=== PATIENT | male | born 1945 | race Two or more races ===

== ENCOUNTER → 2024-06-08 | Outpatient (CLI) | payer MEDICARE, BC, SELFPAY ==
[2024-06-08 08:35] LABS: Glucose Estimated Average 100 mg/dL (80-131); Hemoglobin A1C 5.1 % Hgb (4.8-6.0); PSA Medicare Annual Scrn 0.81 ng/mL (0-4.00)
[2024-06-08 08:37] LABS: Alanine Aminotransferase 59 U/L (10-49); Albumin, Serum 3.8 gm/dL (3.4-4.8); Albumin/Globulin Ratio 1.5 (1.2-2.2); Alkaline Phosphatase 111 U/L (46-116); Anion Gap 6 (7-16); Aspartate Amino Transferase 69 U/L (0-34); BUN/Creatinine Ratio 17 Ratio (12-20); Blood Urea Nitrogen 15 mg/dL (9-23); Calcium 9.2 mg/dL (8.3-10.6); Calcium (Corrected) 9.4 mg/dL (8.5-10.1); Carbon Dioxide 25.5 mMol/L (20.0-31.0); Cardiac Risk Estimate 3.5 RATIO (4.0-6.7); Chloride 107 mMol/L (98-107); Cholesterol 138 mg/dL (132-200); Creatinine (Component) 0.9 mg/dL (0.6-1.3); Globulin 2.5 gm/dL (2.3-3.5); Glucose 110 mg/dL (74-106); HDL Cholesterol 40 mg/dL (40-60); LDL Cholesterol,Calculated 78 mg/dL (0-130); Osmolality,Calculated 277 (275-295); Potassium 3.9 mMol/L (3.4-5.1); Sodium 138 mMol/L (136-145); Total Protein 6.3 gm/dL (5.7-8.2); Triglycerides 99 mg/dL (30-150); eGFR > 60 See Note
[2024-06-08 08:39] LABS: Basophils % (Auto) 0 % (0-2.5); Eosinophils # (Auto) 0.3 Thou/mm3 (0.0-0.5); Eosinophils % (Auto) 5 % (0-10); Hematocrit 29.2 % (41.0-53.0); Hemoglobin 10.2 g/dL (13.5-16.0); Immature Granulocytes % (Auto) 0 % (0-0); Immature Granulocytes Auto 0.01 Thou/mm3 (0.00-0.00); Lymphocytes # (Auto) 1.3 Thou/mm3 (1.0-4.8); Lymphocytes % (Auto) 27 % (10-50); Mean Corpuscular HGB Conc 34.9 g/dl (31.0-37.0); Mean Corpuscular Hemoglobin 35.3 pg (25.0-35.0); Mean Corpuscular Volume 101 fL (80-100); Monocytes # (Auto) 0.4 Thou/mm3 (0.0-0.8); Monocytes % (Auto) 8 % (0-12); Neutrophils # (Auto) 2.8 Thou/mm3 (1.8-7.7); Neutrophils % (Auto) 59 % (37-80); Nucleated Red Blood Cell % 0 /100 WBC (0); Platelet Count 100 Thou/mm3 (140-440); RDW Standard Deviation 52.5 fL (35.1-43.9); Red Blood Count 2.89 Miln/mm3 (4.50-5.90); White Blood Count 4.8 Thou/mm3 (3.8-10.6)
== END | disposition home or self-care (01) ==
LOC: COPL 07:15
PROVIDERS: PCP Internal Medicine; Referring Provider Internal Medicine; Visit Provider Internal Medicine
DX: E78.2 Mixed hyperlipidemia (principal); I10 Essential (primary) hypertension; Z12.5 Encounter for screening for malignant neoplasm of prostate
CPT/HCPCS: 36415; 80053; 80061; 83036; 84153; 85025; G0103

== ENCOUNTER → 2024-06-09 | Outpatient (CLI) | payer MEDICARE, BC, SELFPAY ==
[2024-06-09 12:13] LABS: OBS Card Lot # 23001; OBS Performed By LAB; OBS QC OK? Yes
[2024-06-09 14:30] LABS: OBS Developer Lot # 23003; Occult Blood, Stool Negative (Negative); Occult Blood, Stool #2 Negative (Negative); Occult Blood, Stool #3 Negative (Negative)
== END | disposition home or self-care (01) ==
LOC: SLDO 11:56
PROVIDERS: Referring Provider Internal Medicine; Visit Provider Internal Medicine
DX: E78.2 Mixed hyperlipidemia (principal); I10 Essential (primary) hypertension
CPT/HCPCS: 82270

== ENCOUNTER → 2024-06-21 | Outpatient (CLI) | payer MEDICARE, BC, SELFPAY ==
[2024-06-21 11:38] LABS: Basophils % (Auto) 0 % (0-2.5); Eosinophils # (Auto) 0.1 Thou/mm3 (0.0-0.5); Eosinophils % (Auto) 3 % (0-10); Hematocrit 35.1 % (41.0-53.0); Hemoglobin 11.6 g/dL (13.5-16.0); Immature Granulocytes % (Auto) 1 % (0-0); Immature Granulocytes Auto 0.03 Thou/mm3 (0.00-0.00); Lymphocytes # (Auto) 1.1 Thou/mm3 (1.0-4.8); Lymphocytes % (Auto) 24 % (10-50); Mean Corpuscular Hemoglobin 32.9 pg (25.0-35.0); Mean Corpuscular Volume 99 fL (80-100); Monocytes # (Auto) 0.3 Thou/mm3 (0.0-0.8); Monocytes % (Auto) 7 % (0-12); Neutrophils # (Auto) 2.9 Thou/mm3 (1.8-7.7); Neutrophils % (Auto) 65 % (37-80); Nucleated Red Blood Cell % 0 /100 WBC (0); Platelet Count 125 Thou/mm3 (140-440); RDW Standard Deviation 52.6 fL (35.1-43.9); Red Blood Count 3.53 Miln/mm3 (4.50-5.90); White Blood Count 4.5 Thou/mm3 (3.8-10.6)
[2024-06-21 11:45] LABS: Iron 69 mcg/dL (65-175)
[2024-06-21 11:54] LABS: Vitamin B12 805 pg/mL (211-911)
[2024-06-21 12:44] LABS: Path Review Blood Smear Sent to Pathologist
[2024-06-28 03:04] LABS: Albumin 3.7 g/dL (3.8-4.8); Alpha-1-Globulin 0.3 g/dL (0.2-0.3); Alpha-2-Globulin 0.7 g/dL (0.5-0.9); Beta-1-Globulin 0.5 g/dL (0.4-0.6); Beta-2-globulin 0.3 g/dL (0.2-0.5); Gamma Globulin 1.5 g/dL (0.8-1.7)
[2024-06-28 06:29] LABS: Protein, total, serum 6.9 g/dL (6.1-8.1)
== END | disposition home or self-care (01) ==
LOC: COPL 10:27
PROVIDERS: PCP Internal Medicine; Referring Provider Internal Medicine; Visit Provider Internal Medicine
DX: D50.0 Iron deficiency anemia secondary to blood loss (chronic) (principal)
CPT/HCPCS: 36415; 82607; 83540; 84155; 84165; 85025; 86334

== ENCOUNTER 2024-07-04 19:47 | Inpatient (IN) | payer MEDICARE, BC, SELFPAY ==
[2024-07-04] VITALS (8 sets, daily range): BP systolic 97–143; BP diastolic 34–88; PULSE 91–98; RESP 16–22; TEMP 36.5–37.3; O2SAT 96–100; BMI 30.4
--- NOTE | 2024-07-04 19:52 | EKG_ITS ---
[facility] Test Date: 2024-07-04 Pat Name: DAGMAR SHARPE Department: Room: - Gender: Male [employer]: : 1945 Requested By: Avery Candelario Order Number: [id number] Reading MD: Avery Candelario Measurements Intervals [place] Rate: 96 P: CT: QRS: 17 QRSD: 93 T: 60 QT: 350 QTc: 443 Interpretive Statements ATRIAL FIBRILLATION NONSPECIFIC ST & T-WAVE ABNORMALITY ABNORMAL RHYTHM ECG No previous ECG available for comparison /store/S0/[id number]/[id number].pdf
--- NOTE | 2024-07-04 20:18 | XR_ITS ---
Examination: AP chest single view Technique one AP portable upright chest single view Exam date and time: July 04, 20242035 hrs. Indications: Coughing up blood today with vomiting Findings: Normal heart size No aspiration pneumonia. Moderate osteopenia Impression: Negative for aspiration pneumonia
--- NOTE | 2024-07-04 20:19 | PD.EDRME ---
Rapid Medical Screening Exam [facility] Arrival date/time: 07/04/24 19:47 78M with history of HTN and previous alcohol use/abuse presents to ED with 1 day of dizziness/weakness, gen ab pain, coughing/spitting/throwing up up blood, as well as possibly black stools. Patient states he had a negative Guaiac test at PCP. Patient states he caught himself before he fell, but apparently neighbor states he fell and hit his head. Chief Complaint: Nausea/Vomiting/Diarrhea Time Seen by Provider: 07/04/24 21:38 Vital signs: Vital Signs Temperature 97.7 F 07/04/24 20:06 Pulse Rate 91 07/04/24 20:06 Respiratory Rate 20 07/04/24 20:06 Blood Pressure 97/68 07/04/24 20:06 Pulse Oximetry (%) 98 07/04/24 20:06 Oxygen Delivery Method Room Air 07/04/24 20:06
--- NOTE | 2024-07-04 20:24 | XR_ITS ---
Examination: CT brain head without contrast. 2-D sagittal coronal reconstructions Date and time of exam:July 04, 2024 2050 hrs. Comparison 04/21/2012 Indications: Patient fell 2 hours ago with injury to the head, head pain and dizziness CTDI: vol (mGy):50.20 DLP: (mGycm):1025 Technique: Multiple CT axial sections of the brain have been obtained, 5 mm slice thickness. Contrast has not been administered. 2-D sagittal, coronal reconstructions have been obtained Low dose protocols were performed. One or more of the following dose reduction techniques were used; automated exposure control, adjustment of the mA and/or KV according to patient size, use of iterative reconstruction technique. Findings: No significant ventricular enlargement. Intra-axial or extra-axial hemorrhage density is not seen. No mass effect or midline shift Basal cisterns are not remarkable. Fourth ventricle is midline. Cranial vault intact. Right maxillary sinusitis Impression: Negative for acute hemorrhage, mass effect or midline shift
--- NOTE | 2024-07-04 20:24 | XR_ITS ---
Examination: CT cervical spine without contrast 2-D sagittal reconstructions 2-D coronal reconstructions 3-D reconstructions. Exam date and time:July 04, 20242 hrs. Indications: Patient fell 2 hours ago with injury to the neck, neck pain CTDI:vol (mGy) 16.46 DLP: (mGycm) 457 Technique: Multiple 2 mm axial sections of the cervical spine have been obtained. The coronal and sagittal reconstructions have been obtained. 3-D reconstructions have been obtained. Low dose protocols were performed. One or more of the following dose reduction techniques were used; automated exposure control, adjustment of the mA and/or KV according to patient size, use of iterative reconstruction technique. Findings: Axial sections demonstrate intact base of the skull. C1 exhibit satisfactory relationship to the odontoid. No acute cervical vertebral body fracture seen. Alignment posterior spinous processes satisfactory. Impression: No acute cervical fracture.
--- NOTE | 2024-07-04 20:30 | PC.NURSE ---
PT CAME TO ER FROM HOME FOR C/O DIZZINESS AND WEAKNESS, PT WAS AT ER LOBBY , PUT TO ROOM 2 BECAUSE PT SAID HE VOMITED BLOOD, PALE LOOKING. PT ALSO SAID HE DID NOT FALL. HE ALSO SAID HE HAS BLACK STOOL.
[2024-07-04] MEDS: ONDANSETRON INJ 2 MG/ML INJ 2 ML 4 MG IV (20:35)
[2024-07-04] MEDS: PANTOPRAZOLE INJ 40 MG VIAL 80 MG IV (20:38)
[2024-07-04 20:58] LABS: Basophils % (Auto) 0 % (0-2.5); Eosinophils % (Auto) 0 % (0-10); Immature Granulocytes % (Auto) 1 % (0-0); Lymphocytes # (Auto) 2.4 Thou/mm3 (1.0-4.8); Lymphocytes % (Auto) 18 % (10-50); Mean Corpuscular Hemoglobin 32.5 pg (25.0-35.0); Mean Corpuscular Volume 102 fL (80-100); Monocytes # (Auto) 0.9 Thou/mm3 (0.0-0.8); Monocytes % (Auto) 6 % (0-12); Neutrophils # (Auto) 10.1 Thou/mm3 (1.8-7.7); Neutrophils % (Auto) 75 % (37-80); Nucleated Red Blood Cell % 0 /100 WBC (0); Platelet Count 176 Thou/mm3 (140-440); White Blood Count 13.5 Thou/mm3 (3.8-10.6)
[2024-07-04 21:15] LABS: Red Blood Count 1.94 Miln/mm3 (4.50-5.90)
[2024-07-04 21:16] LABS: Hematocrit 19.7 % (41.0-53.0); Hemoglobin 6.3 g/dL (13.5-16.0)
[2024-07-04 21:18] LABS: Alanine Aminotransferase 22 U/L (10-49); Albumin, Serum 3.1 gm/dL (3.4-4.8); Albumin/Globulin Ratio 1.3 (1.2-2.2); Alkaline Phosphatase 84 U/L (46-116); Anion Gap 13 (7-16); Aspartate Amino Transferase 33 U/L (0-34); B-Type Natriuretic Peptide 39 pg/mL (0-100); BUN/Creatinine Ratio 30 Ratio (12-20); Bilirubin,Total 0.4 mg/dL (0.3-1.2); Blood Urea Nitrogen 39 mg/dL (9-23); Calcium (Corrected) 9.7 mg/dL (8.5-10.1); Chloride 110 mMol/L (98-107); Creatinine (Component) 1.3 mg/dL (0.6-1.3); Globulin 2.4 gm/dL (2.3-3.5); Glucose 205 mg/dL (74-106); INR 1.3 (0.9-1.3); Lipase 37 U/L (12-53); Osmolality,Calculated 296 (275-295); Partial Thromboplastin Time 23.6 Seconds (22.0-36.0); Potassium 4.1 mMol/L (3.4-5.1); Prothrombin Time 14.2 Seconds (9.0-12.2); Sodium 141 mMol/L (136-145); Total Protein 5.5 gm/dL (5.7-8.2); Troponin I < 0.020 ng/mL (0.0-0.045); eGFR 57 See Note
--- NOTE | 2024-07-04 21:38 | EDNOTE_ITS ---
Nausea/Vomit./Diarrhea-RME/HPI General Chief complaint: Nausea/Vomiting/Diarrhea Stated complaint: VOMITING,Weakness, Dizzy,fall today Time Seen by Provider: 07/04/24 21:38 Arrival date/time: 07/04/24 19:47 Limitations: no limitations RME / HPI RME / HPI Narrative: 07/04/24 19:47 78M with history of HTN and previous alcohol use/abuse presents to ED with 1 day of dizziness/weakness, gen ab pain, coughing/spitting/throwing up up blood, as well as possibly black stools. Patient states he had a negative Guaiac test at PCP. Patient states he caught himself before he fell, but apparently neighbor states he fell and hit his head. DIZZY X 1 WEEK, NO CHANGE IN THE LAST FEW DAY. The patient states that the dizziness increased since yesterday. ---- Dr. Eubanks's Main ED Evaluation: 78yo male with a history of HTN, alcohol abuse (quit 2 years ago) presents to the ED for a chief complaint of dizziness x 1 week. Patient reports 2 emetic episodes today, reporting one had bright red bl ood. Patient notes he had one episode of coughing up blood just prior to throwing up blood. He denies any bloody or black stools, weight loss or any other associated symptoms. No known allergies. Patient denies being on blood thinners. Patient reports he is not a heavy drinker. MD complaint: nausea, vomiting and other (dizzy) Description of Vomiting: food contents and coffee grounds Associated Abdominal Pain: No Related Data Home Medications ?Medication ?Instructions ?Recorded ?Confirmed amlodipine 10 mg tablet 10 mg PO DAILY 09/28/23 09/29/23 diclofenac 75 mg-misoprostol 200 1 tab PO BID PRN Pain 09/28/23 09/29/23 mcg tablet,immediate,delayed release finasteride 5 mg tablet 5 mg PO DAILY 09/28/23 09/29/23 Allergies Allergy/AdvReac Type Severity Reaction Status Date / Time No Known Allergies Allergy Verified 09/29/23 10:25 Review of Systems Review of Systems Systems Reviewed: All systems reviewed, normal except as documented Past Medical History Past Medical History NEUROLOGIC: Negative Neurological Disorders or Seizures CARDIAC: Positive Cardiac Disorders and Hypertension; Negative Hypercholesterolemia or Congestive Heart Failure RESPIRATORY: Negative Chronic Obstructive Pulmonary Disease (COPD) or Asthma GASTROINTESTINAL: Negative Gastrointestinal Disorders GENITOURINARY: Positive Genitourinary Disorders and Benign Prostatic Hyperplasia; Negative Renal Disease MUSCULOSKELETAL: Positive Musculoskeletal Disorders and Arthritis ENT: Positive Cataracts ENDOCRINE: Negative Endocrine Disorders, Diabetes Mellitus Type 1 or Diabetes Mellitus Type 2 HEMATOLOGIC: Negative Sickle Cell Disease OTHER HISTORY: Negative Blood Transfusions, Anesthesia Reactions or Cancer Social History SMOKING STATUS: Never smoker ED Exam General Limitations: Present no limitations General appearance: Present alert, in no apparent distress and other (laying in the bed, appears pale; has bright red blood on his right chest wall; no facial or muscle wasting) Head Head exam: Present atraumatic Eye Eye exam: Present normal appearance, PERRL and EOMI ENT ENT exam: Present normal exam, normal oropharynx and mucous membranes moist Neck Neck exam: Present normal inspection, full ROM and trachea midline Chest Chest inspection: Present normal inspection and symmetric chest wall rise Respiratory Respiratory exam: Present normal lung sounds bilaterally Cardiovascular Cardiovascular exam: Present regular rate, normal rhythm and normal heart sounds Abdominal Exam Abdominal exam: Present soft, normal bowel sounds and other (large); Absent mass Extremities Exam Extremities exam: Present normal inspection, full ROM and normal capillary refill Back Exam Back exam: Present normal inspection and full ROM Neurological Exam Neurological exam: Present alert, oriented X3 and CN II-XII intact Psychiatric Psychiatric exam: Present normal affect and normal mood Skin Skin exam: Present warm, dry, intact and normal color Course Quality Measures none Orders Category Date Time Status Admit to Inpatient Status Routine Admission 07/05/24 01:37 Active Patient Condition Routine Admission 07/05/24 01:36 Ordered Blood glucose [Bedside Blood Glucose] NOW Care 07/04/24 19:52 Active COVID-19 Screening Questionnaire NOW Care 07/05/24 01:[address] Screening NOW Care 07/04/24 22:04 Active Decision to Admit X1 Care 07/05/24 01:03 Completed EKG (ED ONLY) *Do not use* NOW Care 07/04/24 19:52 Completed Insert IV NOW Care 07/04/24 20:25 Active NPO NOW Care 07/05/24 01:38 Active Notify provider NEEDED Care 07/05/24 01:36 Active Transfuse,blood/blood products ONCE Care 07/05/24 01:09 Active Consult to Gastroenterology Stat Cons 07/05/24 01:05 Ordered Diet NPO (NOW) Diet 07/05/24 01:[address] angio chest abdomen pelvis Stat Exams 07/04/24 22:[address] cervical spine wo con Stat Exams 07/04/24 20:[address] head/brain wo con Stat Exams 07/04/24 20:24 Completed EKG (ED Only) Stat Exams 07/04/24 19:52 Draft XR chest 1V portable Stat Exams 07/04/24 20:18 Completed B-Type Natriuretic Peptide Stat Lab 07/04/24 20:40 Completed CBC Stat Lab 07/04/24 20:40 Completed Comprehensive Metabolic Panel Stat Lab 07/04/24 20:40 Completed Drug Screen,Urine Stat Lab 07/04/24 23:35 Completed INR [Prothrombin Time with INR] Stat Lab 07/04/24 20:40 Completed Lipase Stat Lab 07/04/24 20:40 Completed PTT [Partial Thromboplastin Time] Stat Lab 07/04/24 20:40 Completed Path Review Blood Smear Stat Lab 07/04/24 20:40 Completed Troponin I Stat Lab 07/04/24 20:40 Completed Type and Screen Stat Lab 07/04/24 20:40 Results prbc [Red Blood Cells] Stat Lab 07/04/24 20:40 Results Ondansetron Inj [Zofran Inj] Med 07/04/24 20:25 Discontinued 4 mg IV X1 ONE Pantoprazole Inj [Protonix Inj] Med 07/04/24 20:25 Discontinued 80 mg IV X1 ONE Code Status Routine Oth 07/05/24 01:36 Ordered Oxygen Delivery PRN RT 07/05/24 01:38 Active Vital Signs Vital signs: Vital Signs Temperature 97.7 F 07/04/24 20:06 Pulse Rate 91 07/04/24 20:06 Respiratory Rate 20 07/04/24 20:06 Blood Pressure 97/68 07/04/24 20:06 Pulse Oximetry (%) 98 07/04/24 20:06 Oxygen Delivery Method Room Air 07/04/24 20:06 Pulse ox is 98% on room air, which is normal according to my interpretation. Nausea/Vomiting/Diarrhea MDM Narrative MDM Narrative:: Differential diagnosis includes GI bleed, upper versus lower, diverticulosis, cirrhosis, dehydration, acute renal failure, A-fib with RVR. Patient has a history of atrial fibrillation coming in with last drink greater than 50 years ago with GI bleed. Otherwise hemodynamically stable. Patient is treated with 2 units of packed red blood cells, and admitted for colonoscopy. Patient data External records reviewed:: [facility] [place] (Per chart review, patient has no relevant previous ED visits or admissions to this facility.) Clinical information provided by:: patient Social determinants that could affect healthcare access:: alcohol use (history of) Patient has the following chronic illnesses:: HTN, HLD How is presenting disease/condition affected by chronic disease/condition?: uneffected by Evaluation data The following diagnostics were reviewed and interpreted by me:: lab results, radiology exam(s) and EKG tracing(s) Lab and/or radiology exams considered but not ordered:: none Interpretation Summary: WBC count is elevated at 13.5, RBCs are low at 1.94, HnH is low at 6.3/19.7, Platelets are normal at 176, PT is elevated at 14.2, INR and PTT are normal, Glucose is elevated at 205, troponin is normal, according to my interpretation. EKG done at 2004, aFib, rate of 96, no ST elevations or depressions, QTc: 453, no previous EKG for comparison, according to my interpretation. --- I have personally reviewed the radiology data and agree with the radiologist's interpretation below: [facility] Report Signed Patient: DAGMAR SHARPE Record#: [id number] Birthdate: 1945 Age/Sex: 78 / M Location: [facility] Attending Dr: Ordering Physician: Avery Candelario PA-C Date of Service: 07/04/24 Procedure(s): XR chest 1V portable Accession Number(s): [id number] cc: Chandrakant Leon MD; Avery Candelario PA-C~ Examination: AP chest single view Technique one AP portable upright chest single view Exam date and time: July 04, 2024 203 hrs. Indications: Coughing up blood today with vomiting Findings: Normal heart size No aspiration pneumonia. Moderate osteopenia Impression: Negative for aspiration pneumonia Dictated By: Chandrakant Leon MD Signed By: <Electronically signed by Chandrakant Leon MD in OV> 07/04/243 [facility] Report Signed Patient: DAGMAR SHARPE [employer]. Record#: [id number] Birthdate: 1945 Age/Sex: 78 / M Location: [facility] Attending Dr: Ordering Physician: Avery Candelario PA-C Date of Service: 07/04/24 Procedure(s): CT cervical spine wo con Accession Number(s): [id number] cc: Chandrakant Leon MD; Avery Candelario PA-C~ Examination: CT cervical spine without contrast 2-D sagittal reconstructions 2-D coronal reconstructions 3-D reconstructions. Exam date and time:July 04, 20242 hrs. Indications: Patient fell 2 hours ago with injury to the neck, neck pain CTDI:vol (mGy) 16.46 DLP: (mGycm) 457 Technique: Multiple 2 mm axial sections of the cervical spine have been obtained. The coronal and sagittal reconstructions have been obtained. 3-D reconstructions have been obtained. Low dose protocols were performed. One or more of the following dose reduction techniques were used; automated exposure control, adjustment of the mA and/or KV according to patient size, use of iterative reconstruction technique. Findings: Axial sections demonstrate intact base of the skull. C1 exhibit satisfactory relationship to the odontoid. No acute cervical vertebral body fracture seen. Alignment posterior spinous processes satisfactory. Impression: No acute cervical fracture. Dictated By: Chandrkaant Leon MD Signed By: <Electronically signed by Chandrakant Leon MD in OV> 07/04/24 2154 [facility] Report Signed Patient: DAGMAR SHARPE [facility]. Record#: [id number] Birthdate: 1945 Age/Sex: 78 / M Location: [facility] Attending Dr: Ordering Physician: Avery Candelario PA-C Date of Service: 07/04/24 Procedure(s): CT head/brain wo con Accession Number(s): [id number] cc: Chandrakant Leon MD; Avery Candelario PA-C~ Examination: CT brain head without contrast. 2-D sagittal coronal reconstructions Date and time of exam:July 04, 20242049 hrs. Comparison 04/21/2012 Indications: Patient fell 2 hours ago with injury to the head, head pain and dizziness CTDI: vol (mGy):50.20 DLP: (mGycm):1025 Technique: Multiple CT axial sections of the brain have been obtained, 5 mm slice thickness. Contrast has not been administered. 2-D sagittal, coronal reconstructions have been obtained Low dose protocols were performed. One or more of the following dose reduction techniques were used; automated exposure control, adjustment of the mA and/or KV according to patient size, use of iterative reconstruction technique. Findings: No significant ventricular enlargement. Intra-axial or extra-axial hemorrhage density is not seen. No mass effect or midline shift Basal cisterns are not remarkable. Fourth ventricle is midline. Cranial vault intact. Right maxillary sinusitis Impression: Negative for acute hemorrhage, mass effect or midline shift Dictated By: Chandrakant Leon MD Signed By: <Electronically signed by Chandrakant Leon MD in OV> 07/04/24 2152 Medications / Prescriptions Medications / Prescriptions considered but not ordered:: none Medication administrations:: Medication Administration History Ondansetron HCl (Ondansetron Inj 2 Mg/Ml Inj 2 Ml) 4 mg IV Q6H PRN; Protocol PRN Reason: NAUSEA OR VOMITING Stop: 08/04/24 01:38 Pantoprazole Sodium (Pantoprazole Inj 40 Mg Vial) 40 mg IVP Q12HR NOA Stop: 08/04/24 08:59 Discontinued Medications Ondansetron HCl (Ondansetron Inj 2 Mg/Ml Inj 2 Ml) 4 mg IV X1 ONE; Protocol Stop: 07/04/24 20:26 Last Admin: 07/04/24 20:35 Dose: 4 mg Documented By: CVL Pantoprazole Sodium (Pantoprazole Inj 40 Mg Vial) 80 mg IV X1 ONE Stop: 07/04/24 20:26 Last Admin: 07/04/24 20:38 Dose: 80 mg Documented By: CVL see above Consultations Consultation(s) initiated? (list below): Yes Consultation #1 (Physician, Specialty, Details): Discussed case with [Dr. Suero] from [GI] regarding [consultation]. Discussed patients ED course, exam findings, labs, and radiology results. Agrees to consult. Consultation #2 (Physician, Specialty, Details): Discussed case with [Dr. Collado, attending Dr. Gottlieb] from Hospitalist service regarding admission. Discussed patients ED course, exam findings, labs, and radiology results. The Hospitalist [agrees] to accept the patient for admission. Diagnosis Nausea Differential Diagnosis: other (hemoptysis, diverticulosis, upper vs lower GI bleed, CA, PE, TB, metastatic disease) Most likely diagnosis given after review of the tests above:: see below Admission Indicated Admission indicated?: indicated Admission Request Was there a request for admission?: Yes Admission Attestation Admission request attestation: Discussed case with [] from Hospitalist service regarding admission. Discussed patients ED course, exam findings, labs, and radiology results. The Hospitalist [agrees,declines] to accept the patient for admission. Disposition Plan Disposition Plan: Admit Critical Care Time Critical Care Time Critical Care Time: Yes Total Critical Care Time (min.): 40 Attestation: The high probability of sudden, clinically significant deterioration in the patient?s condition required the highest level of my preparedness to intervene urgently. The services I provided to this patient were to treat and/or prevent clinically significant deterioration. Services included the following: chart data review, reviewing nursing notes and/or old charts, documentation time, recruiting operations consultant collaboration regarding findings and treatment options, medication orders and management, direct patient care, vital sign assessments and ordering, interpreting and reviewing diagnostic studies and lab tests. Aggregate critical care time includes only time during which I was engaged in work directly related to the patient?s care, as described above, whether at bedside or elsewhere in the Emergency Department. It did not include time spent performing other reported procedures or the services of residents, students, nurses or physician assistants. Discharge Plan Plan Patient Disposition: Admit Acute Care w/in Hospital Patient condition on transfer: Stable Problem List Clinical Impression: Acute GI bleeding, Symptomatic anemia
[2024-07-04 21:51] LABS: Path Review Blood Smear Sent to Pathologist
--- NOTE | 2024-07-04 22:08 | PD.EDNV ---
Nausea/Vomit./Diarrhea-RME/HPI General Chief complaint: Nausea/Vomiting/Diarrhea Stated complaint: VOMITING,Weakness, Dizzy,fall today Time Seen by Provider: 07/04/24 21:38 Arrival date/time: 07/04/24 19:47 RME / HPI RME / HPI Narrative: 07/04/24 19:47 78M with history of HTN and previous alcohol use/abuse presents to ED with 1 day of dizziness/weakness, gen ab pain, coughing/spitting/throwing up up blood, as well as possibly black stools. Patient states he had a negative Guaiac test at PCP. Patient states he caught himself before he fell, but apparently neighbor states he fell and hit his head. dIZZY X 1 WEEK, NO CHANGE IN THE LAST FEW DAY. The patient states that the dizziness increased since yesterday. Related Data Home Medications ?Medication ?Instructions ?Recorded ?Confirmed amlodipine 10 mg tablet 10 mg PO DAILY 09/28/23 09/29/23 diclofenac 75 mg-misoprostol 200 1 tab PO BID PRN Pain 09/28/23 09/29/23 mcg tablet,immediate,delayed release finasteride 5 mg tablet 5 mg PO DAILY 09/28/23 09/29/23 Allergies Allergy/AdvReac Type Severity Reaction Status Date / Time No Known Allergies Allergy Verified 09/29/23 10:25 Course Orders Category Date Time Status Blood glucose [Bedside Blood Glucose] NOW Care 07/04/24 19:[address] Screening NOW Care 07/04/24 22:04 Active EKG (ED ONLY) *Do not use* NOW Care 07/04/24 19:52 Completed Insert IV NOW Care 07/04/24 20:[address] cervical spine wo con Stat Exams 07/04/24 20:[address] chest abdomen pelvis w Stat Exams 07/04/24 22:[address] head/brain wo con Stat Exams 07/04/24 20:24 Completed EKG (ED Only) Stat Exams 07/04/24 19:52 Draft XR chest 1V portable Stat Exams 07/04/24 20:18 Completed B-Type Natriuretic Peptide Stat Lab 07/04/24 20:40 Completed CBC Stat Lab 07/04/24 20:40 Completed Comprehensive Metabolic Panel Stat Lab 07/04/24 20:40 Completed Drug Screen,Urine Stat Lab 07/04/24 20:18 Ordered INR [Prothrombin Time with INR] Stat Lab 07/04/24 20:40 Completed Lipase Stat Lab 07/04/24 20:40 Completed PTT [Partial Thromboplastin Time] Stat Lab 07/04/24 20:40 [address] Review Blood Smear Stat Lab 07/04/24 20:40 Completed Troponin I Stat Lab 07/04/24 20:40 Completed Type and Screen Stat Lab 07/04/24 20:40 Results prbc [Red Blood Cells] Stat Lab 07/04/24 20:40 Results Ondansetron Inj [Zofran Inj] Med 07/04/24 20:25 Discontinued 4 mg IV X1 ONE Pantoprazole Inj [Protonix Inj] Med 07/04/24 20:25 Discontinued 80 mg IV X1 ONE Vital Signs Vital signs: Vital Signs Temperature 97.7 F 07/04/24 20:06 Pulse Rate 91 07/04/24 20:06 Respiratory Rate 20 07/04/24 20:06 Blood Pressure 97/68 07/04/24 20:06 Pulse Oximetry (%) 98 07/04/24 20:06 Oxygen Delivery Method Room Air 07/04/24 20:06 Nausea/Vomiting/Diarrhea Medications / Prescriptions Medication administrations:: Medication Administration History Discontinued Medications Ondansetron HCl (Ondansetron Inj 2 Mg/Ml Inj 2 Ml) 4 mg IV X1 ONE; Protocol Stop: 07/04/24 20:26 Last Admin: 07/04/24 20:35 Dose: 4 mg Documented By: CVL Pantoprazole Sodium (Pantoprazole Inj 40 Mg Vial) 80 mg IV X1 ONE Stop: 07/04/24 20:26 Last Admin: 07/04/24 20:38 Dose: 80 mg Documented By: CVL Discharge Plan Prescriptions/Referrals Prescriptions/Med Rec: No Action diclofenac-misoprostol 75-200 mg-mcg tablet,IR,delayed rel,biphasic 1 tab PO BID PRN (Reason: Pain) Patient Comments: take 1 tablet by mouth twice a day if needed for SEVERE back and leg pain amlodipine 10 mg tablet 10 mg PO DAILY Patient Comments: take 1 tablet by mouth once daily finasteride 5 mg tablet 5 mg PO DAILY Patient Comments: take 1 tablet by mouth once daily Patient/Caregiver Discharge Instructions Print Language: Vietnamese
--- NOTE | 2024-07-04 22:30 | XR_ITS ---
Examination: CTA chest, with intravenous contrast. CTA abdomen, with intravenous contrast. CTA pelvis, with intravenous contrast. 2-D sagittal and coronal reconstructions. 3-D reconstructions. Date and time of exam: July 04, 2024 1055 hrs. Indications: Patient fell today with injury chest and abdomen, chest pain abdomen pain CTDI vol (mgy) 18.36 DLP (MGycm) 1126 Technique: Multiple CTA images, 2.0 mm slice thickness, obtained chest, abdomen, pelvis, with the high-resolution 64 slice scanner. 100 cc Isovue-370 is administered intravenously. Sagittal and coronal 2-D reconstructions are obtained. 3-D reconstructions, angiographic images are obtained. 3-D postprocessing, including vascular maximum intensity projections. Low dose protocols were performed. One or more of the following dose reduction techniques were used; automated exposure control, adjustment of the mA and/or KV according to patient size, use of iterative reconstruction technique. Findings: Thoracic aorta pulmonary arteries intact No pulmonary artery emboli No hemopericardium No pneumothorax pulmonary contusion or hemothorax The manubrium, body the sternum thoracic vertebral bodies intact Ribs appear intact No liver splenic or renal laceration No gallstones Abdominal aorta intact with no free blood in the abdomen Normal appendix Negative for pneumoperitoneum Lumbar vertebral bodies bones of the pelvis hips intact Urinary bladder intact AP prostate dimension 4.5 cm Impression: Thoracic aorta pulmonary arteries intact No hemopericardium, pneumothorax, pulmonary contusion or hemothorax No abdominal parenchymal laceration Abdominal aorta intact No free blood in the abdomen or pelvis Osseous structures appear intact
[2024-07-05] VITALS (21 sets, daily range): BP systolic 111–163; BP diastolic 43–82; PULSE 74–96; RESP 16–98; TEMP 36.1–37; O2SAT 97–100; BMI 25.4; BMI 30.4
[2024-07-05 00:28] LABS: Amphetamine/Methamp Scrn,U Negative (Negative); Barbiturate Screen,Urine Negative (Negative); Benzodiazepines Screen,Urine Negative (Negative); Benzoylecgonine Screen, Ur Negative (Negative); Fentanyl Screen,Urine Negative (Negative); Opiate Screen,Urine Negative (Negative); THC Screen,Urine Negative (Negative)
--- NOTE | 2024-07-05 03:17 | ESHP_ITS ---
Documentation for date of: 07/05/24 HPI History of Present Illness History of present illness: The patient is a 78-year-old male with a past medical history of hypertension, anxiety disorder and BPH who presents to the ED in 07/05/2024 with a chief complaint of dizziness of about a week duration. According to him, his symptoms started about a week ago while he was working in his garden and has been persistent over the same duration, possibly worsening yesterday. Per ED doctor, neighbor was with him when he came in and reported that after he complained of being dizzy today he fell and hit his head, patient denies falling and states he caught himself before he fell. He also reports that he had 2 episodes of vomiting/spitting up blood to get it was noted that the patient's close was bloodstained during examination in the ED. He also mentions that he had dark stools about 3 weeks ago when he visited his PCP but has cleared and now. He denies being on blood thinners and while he does take NSAIDs for pain, he reports that he only takes it occasionally. He also takes supplements, possible iron containing. The patient had a colonoscopy done in September as part of regular screening which showed hemorrhoids and diverticulosis. ED course: In the ED, patient was noted to be afebrile, normotensive and saturating 97% on room air. Labs were done which showed leukocytosis of 13.5, hemoglobin of 6.3 with hematocrit of 19.7 and MCV of 102 PLT 176 NA 140 1K4.1 chloride 110 bicarb 18 BUN 39 creatinine 1.3 glucose 205. U tox is clean. Head CT and CT spine were negative, CTAP showed no free blood in abdomen or pelvis and chest x-ray was negative for any pathologies. EKG on admission was sinus with occasional PACs. In the ED, GI Dr. Suero was consulted who recommended the patient to be admitted for further workup of GI bleed. Review of Systems Review of Systems Narrative Review of Systems: GENERAL: Denies fevers/chills or diaphoresis. HEENT: Denies headache or visual/hearing changes. Denies nasal discharge. NEURO: Admits lightheadedness/dizziness CARDIO: Denies chest pain or palpitations. PULM: Denies SOB, coughing, or wheezing. GI: Denies abdominal pain, admits vomiting blood and dark tarry stools. URO: Denies burning/itching/pain/urinary changes. MSK/EXT/SKIN: Denies joint/skeletal/muscle pain, issues/changes in upper or lower extremities, itchiness, or superficial pain. PSYCH: Cooperative, pleasant mood & affect. Exam Vital Signs Temp Pulse Resp BP Pulse Ox O2 Del Method 98.5 F 89 18 135/52 H 97 Room Air 07/05/24 02:23 07/05/24 02:23 07/05/24 02:23 07/05/24 02:23 07/05/24 02:23 07/04/24 22:18 Narrative Exam GENERAL: AAOX3 NEURO: LEAD CUSTOMER SERVICE REPRESENTATIVE grossly intact, moves extremities x4 HEENT: Moist mucosa. Eyes open, symmetrical, & clear CARDIO: No chest pain on palpation. Heart RRR, no obvious murmurs PULM: No noted coughing/dyspnea. Lungs CTA B/L GI: Abdomen soft, nondistended, no pain on palpation. BSx4 URO/ROOM COOLER INSTALLER:: No further abnormalities noted. SKIN/MSK/EXT: No wounds/rashes/edema/amputations, no pain on palpation. Pedal pulses present B/L Results: Labs 07/05/24 05:40 07/05/24 05:40 Labs: Short CBC 07/04/24 Range/Units 20:40 WBC 13.5 H (3.8-10.6) Thou/mm3 Hgb 6.3 L* (13.5-16.0) g/dL Hct 19.7 L* (41.0-53.0) % Plt Count 176 D (140-440) Thou/mm3 BMP 07/04/24 20:40 Sodium 141 Potassium 4.1 Chloride 110 H Carbon Dioxide 18.0 L BUN 39 H Creatinine 1.3 Glucose 205 H Calcium 9.0 Cardiac Enzymes 07/04/24 Range/Units 20:40 Troponin I < 0.020 (0.0-0.045) ng/mL Liver Function 07/04/24 Range/Units 20:40 Total Bilirubin 0.4 (0.3-1.2) mg/dL AST 33 (0-34) U/L ALT 22 (10-49) U/L Alkaline Phosphatase 84 (46-116) U/L Albumin 3.1 L (3.4-4.8) gm/dL Quality Measures Quality Measures none Advance care planning discussed with:: patient Medications Home Medications and Allergies Home Medications ?Medication ?Instructions ?Recorded ?Confirmed ?Type amlodipine 10 mg tablet 10 mg PO DAILY 09/28/23 07/05/24 History diclofenac 75 mg-misoprostol 200 1 tab PO BID PRN Pain 09/28/23 07/05/24 History mcg tablet,immediate,delayed release finasteride 5 mg tablet 5 mg PO DAILY 09/28/23 07/05/24 History buspirone 5 mg tablet 2.5 mg PO PRN PRN Anxiety 07/05/24 07/05/24 History Allergies Allergy/AdvReac Type Severity Reaction Status Date / Time No Known Allergies Allergy Verified 09/29/23 10:25 Visit Medications Ondansetron HCl (Ondansetron Inj 2 Mg/Ml Inj 2 Ml) 4 mg IV Q6H PRN; Protocol PRN Reason: NAUSEA OR VOMITING Stop: 08/04/24 01:38 Pantoprazole Sodium (Pantoprazole Inj 40 Mg Vial) 40 mg IVP Q12HR NOA Stop: 08/04/24 08:59 Discontinued Medications Ondansetron HCl (Ondansetron Inj 2 Mg/Ml Inj 2 Ml) 4 mg IV X1 ONE; Protocol Stop: 07/04/24 20:26 Last Admin: 07/04/24 20:35 Dose: 4 mg Pantoprazole Sodium (Pantoprazole Inj 40 Mg Vial) 80 mg IV X1 ONE Stop: 07/04/24 20:26 Last Admin: 07/04/24 20:38 Dose: 80 mg Assessment & Plan Assessment Summary: The patient is a 78-year-old male with a past medical history of hypertension, anxiety disorder and BPH who presents to the ED on 07/15/2024 with complaints of dizziness for about a week duration, 2 episodes of bloody vomiting and dark tarry stools. The patient has been admitted for further workup of GI bleed. #Acute blood loss anemia #?GI bleed, likely upper The patient presented with a 1 week history of dizziness, 2 episodes of vomiting said to be bloody and dark tarry stools decided to have resolved. He denies being on blood thinners, NSAID abuse or history of peptic ulcer disease. In the ED, labs significant for hemoglobin of 6.3 with hematocrit of 19.7. GI Dr. Suero was consulted, recommends for patient to be admitted for further workup of GI bleed. Patient is currently being transfused total of 2 PRBCs. Plan: -Admit to [facility] -N.p.o. -Protonix 40 mg twice daily -Posttransfusion H&H showed -GI consulted, appreciate recommendations #History of hypertension The patient is on amlodipine 10 mg daily. Blood pressure on admission in the 120s. -Home medications none as patient is n.p.o., restart as appropriate #History of anxiety The patient is on buspirone 5 mg daily -Will restart medication once PO medications resumed #History of BPH The patient is on finasteride 5 mg p.o. daily -Restart medication once p.o. medication resumed Health maintenance: Dispo: MedSurg Diet: NPO GI: Pantoprazole DVT: SCDs Daly: None Lines: Peripheral Med Rec: Pending, f/u PT: Code:Full Case was discussed with attending physician, Dr Peter Coreas MD PGY-1 Attending Provider Attestation/Addendum 78-year-old male patient was seen in the ER because of spitting blood in had recent dark-colored stools. The patient complained of dizziness lightheadedness. He denies chest pain no shortness of breath. He said he 'hardly ever' drinks alcohol. He denies smoking. He said his brother recently and they just buried him yesterday. He has anxiety. He was given anxiety medication by his PCP Dr Webb. He was going to see Dr Webb for this problem but his office is closed. He then proceeded to the ER. The patient was found to be anemic. He was started on blood transfusion. GI evaluation was requested.
[2024-07-05 05:57] LABS: Basophils % (Auto) 0 % (0-2.5); Eosinophils % (Auto) 0 % (0-10); Hematocrit 25.8 % (41.0-53.0); Immature Granulocytes % (Auto) 1 % (0-0); Immature Granulocytes Auto 0.07 Thou/mm3 (0.00-0.00); Lymphocytes # (Auto) 1.9 Thou/mm3 (1.0-4.8); Lymphocytes % (Auto) 14 % (10-50); Mean Corpuscular HGB Conc 33.3 g/dl (31.0-37.0); Mean Corpuscular Hemoglobin 31.7 pg (25.0-35.0); Mean Corpuscular Volume 95 fL (80-100); Monocytes % (Auto) 8 % (0-12); Neutrophils # (Auto) 10.6 Thou/mm3 (1.8-7.7); Neutrophils % (Auto) 78 % (37-80); Nucleated Red Blood Cell # 0.03 Thou/mm3 (0.00-0.00); Nucleated Red Blood Cell % 0 /100 WBC (0); Platelet Count 95 Thou/mm3 (140-440); RDW Standard Deviation 53.1 fL (35.1-43.9); Red Blood Count 2.71 Miln/mm3 (4.50-5.90); White Blood Count 13.6 Thou/mm3 (3.8-10.6)
[2024-07-05 06:11] LABS: Hemoglobin 8.6 g/dL (13.5-16.0)
[2024-07-05 06:46] LABS: Alanine Aminotransferase 24 U/L (10-49); Albumin, Serum 3.3 gm/dL (3.4-4.8); Albumin/Globulin Ratio 1.7 (1.2-2.2); Alkaline Phosphatase 80 U/L (46-116); Anion Gap 8 (7-16); Aspartate Amino Transferase 24 U/L (0-34); BUN/Creatinine Ratio 38 Ratio (12-20); Bilirubin,Total 0.9 mg/dL (0.3-1.2); Blood Urea Nitrogen 38 mg/dL (9-23); Calcium 8.4 mg/dL (8.3-10.6); Carbon Dioxide 20.8 mMol/L (20.0-31.0); Cardiac Risk Estimate 4.4 RATIO (4.0-6.7); Chloride 112 mMol/L (98-107); Cholesterol 109 mg/dL (132-200); Estimated Creatinine Clearance 67.7 mL/min (>60); Glucose 134 mg/dL (74-106); HDL Cholesterol 25 mg/dL (40-60); LDL Cholesterol,Calculated 51 mg/dL (0-130); Osmolality,Calculated 292 (275-295); Potassium 4.4 mMol/L (3.4-5.1); Sodium 141 mMol/L (136-145); Thyroid Stimulating Hormone 1.34 uIU/mL (0.55-4.78); Total Protein 5.3 gm/dL (5.7-8.2); Triglycerides 164 mg/dL (30-150); eGFR > 60 See Note
--- NOTE | 2024-07-05 07:39 | PC.NURSE ---
Rn report given to Teagan Eason, patient will transfer to room 350
--- NOTE | 2024-07-05 08:23 | ESPR_ITS ---
<Statement entered by Yoshi Jimenez MD - 07/05/24 17:33> Patient was seen and examined at the bedside. Patient was admitted last night due to GI bleed workup. GI specialist is following the case and plan to do EGD today. Patient was transfused 1 unit PRBC and will follow-up with post H&H. Continue Protonix 40 mg twice daily. He was complaining of mild dizziness which has improved. Patient wants to eat and drink however was explained that after EGD he will be able to do that. Patient has a longstanding history of taking ibuprofen for abdominal pain. He was explained that could be contributing factor for it. Awaiting EGD. All labs and orders were reviewed. I saw and examined the patient, and I agree with current management stated by Dr Pb MD,PGY1. Plan of care was discussed with the attending physician and resident physician. Disclaimer: Despite multiple revisions, due to the dictation software being used, the document bellow may not be free of grammatical errors including phonetic/typographic errors. However, this does not deter from our commitment to providing health care in the patient's best interest in mind. Dr. Raven MD, PGY 2 Documentation for date of: 07/05/24 Subjective Subjective Interval history: Patient was seen and examined at bedside this AM. Patient's initial Hb 6.3 which improved to 8.6 after 2 units PRBC infusion Patient currently n.p.o. for EGD later today Patient still complains of dizziness however improved and intermittent palpitations Patient can have ice chips, but keep n.p.o. Of note patient states that he previously followed up with neurological physiotherapist Dr. Summers and had a treadmill stress test and echocardiogram in the past. He is unsure of why he was following up with Dr. Summers. Exam Vital Signs Temp Pulse Resp BP Pulse Ox O2 Del Method 98.6 F 75 16 117/43 L 100 Room Air 07/05/24 04:38 07/05/24 07:18 07/05/24 07:18 07/05/24 06:13 07/05/24 06:13 07/05/24 06:13 Narrative Exam Constitutional Alert, oriented x 3 and comfortable. Elderly male, pale MM and moist HEENT Vision grossly intact. Patent nares. Trachea midline Respiratory Chest normal on inspection and clear auscultation bilaterally Cardiovascular S1 and S2 audible, RRR. 3/6 ejection systolic murmur auscultated at right sternal border with radiation to carotids, 3 and 6 pansystolic murmur heard at apex with radiation to axilla. JVD not assessed Abdominal Soft and non tender to palpation in all quadrants. BS + Genitourinary No bladder tenderness, no flank pain. Normal to palpation Musculoskeletal Extremities tone within normal limits. No LE edema. Neurological CN II - XII grossly intact. Extremity motor and sensation grossly intact. Skin Warm, dry and intact. No apparent lesions. Psychiatric Patient has good affect, is cooperative Objective Labs 07/05/24 05:40 07/05/24 05:40 Labs: Laboratory Results - last 24 hr 07/04/24 07/04/24 07/05/24 20:40 23:35 05:40 WBC 13.5 H 13.6 H RBC 1.94 L* 2.71 L Hgb 6.3 L* 8.6 L D Hct 19.7 L* 25.8 L MCV 102 H 95 MCH 32.5 31.7 MCHC 32.0 33.3 RDW Std Deviation 54.0 H 53.1 H Plt Count 176 D 95 L D Neut % (Auto) 75 78 Lymph % (Auto) 18 14 Swain % (Auto) 6 8 Eos % (Auto) 0 0 Baso % (Auto) 0 0 Neut # (Auto) 10.1 H 10.6 H Lymph # (Auto) 2.4 1.9 Swain # (Auto) 0.9 H 1.0 H Eos # (Auto) 0.0 0.0 Baso # (Auto) 0.0 0.0 Immature Gran # (Auto) 0.10 H 0.07 H Absolute Nucleated RBC 0.00 0.03 H Immature Gran % 1 H 1 H Nucleated RBC % 0 0 Smear Path Review Sent to Pathologist PT 14.2 H INR 1.3 APTT 23.6 Sodium 141 141 Potassium 4.1 4.4 Chloride 110 H 112 H Carbon Dioxide 18.0 L 20.8 Anion Gap 13 8 BUN 39 H 38 H Creatinine 1.3 1.0 Estim Creat Clear Calc 52.0 L 67.7 eGFR 57 L > 60 BUN/Creatinine Ratio 30 H 38 H Glucose 205 H 134 H D Calculated Osmolality 296 H 292 Calcium 9.0 8.4 Corrected Calcium 9.7 9.0 Magnesium 2.0 Total Bilirubin 0.4 0.9 D AST 33 24 ALT 22 24 Alkaline Phosphatase 84 80 Troponin I < 0.020 B-Natriuretic Peptide 39 Total Protein 5.5 L 5.3 L Albumin 3.1 L 3.3 L Globulin 2.4 2.0 L Albumin/Globulin Ratio 1.3 1.7 Triglycerides 164 H Cholesterol 109 L LDL Cholesterol, Calc 51 HDL Cholesterol 25 L Cholesterol/HDL Ratio 4.4 Lipase 37 TSH 1.34 Urine Opiates Screen Negative Urine Fentanyl Screen Negative Ur Barbiturates Screen Negative U Amphetamin/Meth Scrn Negative U Benzodiazepines Scrn Negative U Cocaine Metab Screen Negative U Marijuana (THC) Screen Negative Blood Type A Positive Antibody Screen NEGATIVE Crossmatch See Detail Blood Bank Wristband ID Yes Quality Measures Quality Measures none Advance care planning discussed with:: patient Assessment & Plan Assessment Current Active Medications: Generic Name Dose Route Start Last Admin Trade Name Freq PRN Reason Stop Dose Admin Ondansetron HCl 4 mg 07/05/24 01:39 Ondansetron Inj 2 Mg/Ml Inj 2 Ml IV 08/04/24 01:38 Q6H PRN NAUSEA OR VOMITING Protocol Pantoprazole Sodium 40 mg 07/05/24 09:00 Pantoprazole Inj 40 Mg Vial IVP 08/04/24 08:59 Q12HR NOA Plan Patient initial Hb patient was [id number] male with past medical history of essential hypertension, anxiety or and BPH who presented to the ED with a chief complaint of dizziness. He also had associated vomiting/hematemesis with episode of melena 3 weeks ago and the day prior to admission. Patient was admitted for acute blood loss anemia secondary to GI bleed for investigation. 1. Acute blood loss anemia Secondary to 2. GI bleed for investigation Patient presented with symptomatic anemia, dizziness and palpitations. She also had episode of melena 3 weeks ago as well as the day prior to admission. On exam patient has occasional skipped beats and pale, moist MM. Hb on admission 6.3 which increased to 8.6 after 2 units PRBC infusion. Of note patient had colonoscopy completed on 10/04/2023 findings include: Hemorrhoids on perianal exam, mild sigmoid diverticulosis, mild descending colon diverticulosis and internal hemorrhoids. No polyps were found Plan: ? Keep n.p.o. ? Monitor Hb on CBC - Transfuse with PRBC if Hb < 7 ? Protonix 40 Mg IV twice daily ? Ondansetron 4 Mg IV every 6 hourly as needed for vomiting ? GI, Dr. Suero consulted. Appreciate recommendations 3. Essential hypertension On admission BP 97/68. Currently BP 111/70 Home medication amlodipine 10 Mg p.o. daily Due to low blood pressures and recent GI bleed with symptomatic anemia will hold antihypertensives for now. 4. Anxiety Patient is on buspirone 2.5 Mg p.o. as needed for anxiety at home. Plan: ? Resume home medication buspirone 2.5 Mg p.o. as needed 5. BPH Patient on home medication finasteride 5 Mg p.o. daily Plan: ? Resume home medication finasteride 5 Mg p.o. daily 6. Hyperlipidemia Triglycerides 164, cholesterol 109, LDL 51, HDL 25 Plan: ? Patient is older than 77 will start moderate intensity statin. 7. Thrombocytopenia On admission plt 176 with subsequently down trended to 95. From chart review patient's baseline appears to be between 100/120s. DDx: Dilutional, blood loss, viral infection, B12 deficiency, ITP, aortic Stenosis. Plan: ? Continue to monitor cbc. - Ordered B12 levels to rule out deficiency as well as Fe levels Health maintenance: Disposition: Awaiting EGD Diet: NPO Lines: pIVs GI Prophylaxis: Protonix Thrombo Prophylaxis: SCDs Code status: FULL CODE Plan of care discussed with Attending Dr. Delaney and PGY2 Dr. Raven Meredith MD PGY 1 Attending Provider Attestation/Addendum I have examined the patient, reviewed labs and imaging findings, discussed the case with the resident(s), and reviewed entered orders. I agree with the plan of care as outlined in this note, with these additional summaries/recommendations: Patient seen at bedside. Patient was admitted overnight for acute blood loss anemia secondary to likely upper GI bleed. Hemoglobin found to be 6.3 on admission and received 2 units PRBCs with hemoglobin 8.6 today. Patient denies any abdominal pain at bedside. Patient is currently n.p.o., on IV Protonix 40 mg twice daily, anticoagulation. Gastroenterology was consulted and planning for EGD today. Patient denies taking any anticoagulation at home. Thrombocytopenia present which may be secondary to liver disease. Continue home antihypertensives and buspirone when able. Monitor H&H and repeat chemistry panel in AM. Dr. Delaney
[2024-07-05] MEDS: PANTOPRAZOLE INJ 40 MG VIAL IVP ×2 (09:50→22:20)
--- NOTE | 2024-07-05 18:38 | PD.IMCONS ---
HPI Data of Consult Requesting Physician: Turner Joyce MD Primary Care Provider: Madeline Webb MD Consult Narrative Reason for consult: Hematemesis History of present illness: 78 years old male who presented to the hospital with dizziness weakness almost fell at home and has a history of hematemesis/hemoptysis Presenting hemoglobin hematocrit 6.3 and 19.7 since then he has been transfused and his hemoglobin hematocrit is now 8.6 and 25.8 Platelet count is 95,000 Pro time INR is 1.3 CTA chest abdomen pelvis is basically negative Patient also has been having black stools He does have a history of hypertension anxiety neurosis and BPH related issues Patient not taking any NSAIDs or blood thinners cc:: cc: Turner Joyce MD Review of Systems Review of Systems Systems Reviewed: All systems reviewed, normal except as documented Meds Home Medications and Allergies Home Medications ?Medication ?Instructions ?Recorded ?Confirmed ?Type amlodipine 10 mg tablet 10 mg PO DAILY 09/28/23 07/05/24 History diclofenac 75 mg-misoprostol 200 1 tab PO BID PRN Pain 09/28/23 07/05/24 History mcg tablet,immediate,delayed release finasteride 5 mg tablet 5 mg PO DAILY 09/28/23 07/05/24 History buspirone 5 mg tablet 2.5 mg PO PRN PRN Anxiety 07/05/24 07/05/24 History Allergies Allergy/AdvReac Type Severity Reaction Status Date / Time No Known Allergies Allergy Verified 09/29/23 10:25 Exam Vital Signs Temp Pulse Resp BP Pulse Ox O2 Del Method 97.0 F 81 18 149/82 H 99 Room Air 07/05/24 16:00 07/05/24 16:00 07/05/24 16:00 07/05/24 16:00 07/05/24 16:00 07/05/24 16:00 Constitutional Comments: Chronically ill-appearing Routine Respiratory Exam Comments: Normal to auscultation Routine Abdominal Exam Comments: Soft nontender Results Labs 07/06/24 04:15 07/06/24 04:15 Labs: Short CBC 07/04/24 07/05/24 Range/Units 20:40 05:40 WBC 13.5 H 13.6 H (3.8-10.6) Thou/mm3 Hgb 6.3 L* 8.6 L D (13.5-16.0) g/dL Hct 19.7 L* 25.8 L (41.0-53.0) % Plt Count 176 D 95 L D (140-440) Thou/mm3 BMP 07/04/24 07/05/24 20:40 05:40 Sodium 141 141 Potassium 4.1 4.4 Chloride 110 H 112 H Carbon Dioxide 18.0 L 20.8 BUN 39 H 38 H Creatinine 1.3 1.0 Glucose 205 H 134 H D Calcium 9.0 8.4 Cardiac Enzymes 07/04/24 Range/Units 20:40 Troponin I < 0.020 (0.0-0.045) ng/mL Liver Function 07/04/24 07/05/24 Range/Units 20:40 05:40 Total Bilirubin 0.4 0.9 D (0.3-1.2) mg/dL AST 33 24 (0-34) U/L ALT 22 24 (10-49) U/L Alkaline Phosphatase 84 80 (46-116) U/L Albumin 3.1 L 3.3 L (3.4-4.8) gm/dL Assessment and Plan Additional Assessment & Plan Additional Plan: # Acute GI bleeding with acute posthemorrhagic anemia in the form of melena hematemesis most likely an upper GI bleed Plan Consent obtained for fiberoptic esophagogastroduodenoscopy with possible biopsy possible therapeutic intervention under intravenous moderate sedation Serial CBC IV Protonix Will follow the patient Other medical problems include # Essential hypertension # Anxiety neurosis # BPH related issues Thank you very much for the opportunity to participate in the care of this patient
[2024-07-05] MEDS: OCTREOTIDE ACET INJ 50 mCg/ML VIAL IV (21:58)
[2024-07-05] MEDS: OCTREOTIDE ACET INJ 1,000 MCG in SODIUM CHLORIDE 0.9% 100 ML 5.1 MCG IV (22:00)
[2024-07-06] VITALS (8 sets, daily range): BP systolic 121–154; BP diastolic 54–69; PULSE 60–73; RESP 17–98; TEMP 36.4–37.1; O2SAT 95–99
[2024-07-06] MEDS: CYCLObenzaPRINE 5 MG TABLET PO (00:43)
[2024-07-06 06:13] LABS: Basophils % (Auto) 0 % (0-2.5); Eosinophils # (Auto) 0.2 Thou/mm3 (0.0-0.5); Eosinophils % (Auto) 2 % (0-10); Hematocrit 24.2 % (41.0-53.0); Immature Granulocytes % (Auto) 1 % (0-0); Immature Granulocytes Auto 0.06 Thou/mm3 (0.00-0.00); Lymphocytes # (Auto) 2.1 Thou/mm3 (1.0-4.8); Lymphocytes % (Auto) 23 % (10-50); Mean Corpuscular HGB Conc 33.1 g/dl (31.0-37.0); Mean Corpuscular Hemoglobin 31.9 pg (25.0-35.0); Mean Corpuscular Volume 96 fL (80-100); Monocytes # (Auto) 0.6 Thou/mm3 (0.0-0.8); Monocytes % (Auto) 7 % (0-12); Neutrophils # (Auto) 6.1 Thou/mm3 (1.8-7.7); Neutrophils % (Auto) 68 % (37-80); Nucleated Red Blood Cell # 0.03 Thou/mm3 (0.00-0.00); Nucleated Red Blood Cell % 0 /100 WBC (0); Platelet Count 86 Thou/mm3 (140-440); RDW Standard Deviation 56.9 fL (35.1-43.9); Red Blood Count 2.51 Miln/mm3 (4.50-5.90)
[2024-07-06 06:28] LABS: Ferritin 28 ng/mL (10.5-307.3); Total Iron Binding Capacity 309 mcg/dL (250-425)
[2024-07-06 06:38] LABS: Iron 33 mcg/dL (65-175); Percent Iron Saturation 10 % (20-55); Unsaturated Iron Binding 276 (225-295)
[2024-07-06 06:42] LABS: Alanine Aminotransferase 24 U/L (10-49); Albumin, Serum 3.3 gm/dL (3.4-4.8); Albumin/Globulin Ratio 1.7 (1.2-2.2); Alkaline Phosphatase 75 U/L (46-116); Anion Gap 7 (7-16); Aspartate Amino Transferase 41 U/L (0-34); BUN/Creatinine Ratio 29 Ratio (12-20); Blood Urea Nitrogen 29 mg/dL (9-23); Calcium 8.4 mg/dL (8.3-10.6); Carbon Dioxide 23.2 mMol/L (20.0-31.0); Chloride 108 mMol/L (98-107); Estimated Creatinine Clearance 59.9 mL/min (>60); Glucose 94 mg/dL (74-106); Magnesium 2.2 mg/dL (1.6-2.6); Osmolality,Calculated 281 (275-295); Phosphorous 3.4 mg/dL (2.4-5.1); Potassium 3.9 mMol/L (3.4-5.1); Sodium 138 mMol/L (136-145); Total Protein 5.3 gm/dL (5.7-8.2); eGFR > 60 See Note
[2024-07-06 07:14] LABS: Vitamin B12 340 pg/mL (211-911)
[2024-07-06] MEDS: FINASTERIDE 5 MG TABLET PO (08:23)
[2024-07-06] MEDS: PANTOPRAZOLE INJ 40 MG VIAL IVP ×2 (08:23→20:09)
[2024-07-06] MEDS: POTASSIUM CHLORIDE 20 mEq TABCR PO (09:10)
--- NOTE | 2024-07-06 09:50 | ESPR_ITS ---
<Statement entered by Simon Lane MD - 07/07/24 12:27> I have discussed and was present for the essential components of the history, physical examination, diagnosis, and treatment plan with the resident. I agree with the patient's care as documented by the resident and amended herein by me. Simon Lane MD. <Statement entered by Yoshi Jimenez MD - 07/06/24 15:54> Patient was seen and examined at the bedside. Patient reported to have improvement in abdominal pain. EGD showed grade 2 esophageal varices which were banded. GI specialist recommended to continue octreotide drip for over 5 days. We are advancing the diet as tolerated as GI specialist recommended to consider colonoscopy as outpatient. Will follow-up on the echocardiogram due to murmur auscultated on on cardiac examination. Will continue octreotide for 4 more days and anticipate discharge on 07/10. Hemoglobin remained stable. All labs and orders were reviewed. I saw and examined the patient, and I agree with current management stated by Dr Pb MD,PGY1. Plan of care was discussed with the attending physician and resident physician. Disclaimer: Despite multiple revisions, due to the dictation software being used, the document bellow may not be free of grammatical errors including phonetic/typographic errors. However, this does not deter from our commitment to providing health care in the patient's best interest in mind. Dr. Raven MD, PGY 2 Documentation for date of: 07/06/24 Subjective Subjective Interval history: Patient was seen and examined at bedside this AM. Hb stable at 8 Tolerating full liquid diet. Mentation at baseline. Patient endorses improvement of dizziness however still complains of constant palpitations EGD completed on 07/05/[address] Suero findings include: Three columns of grade 2 esophageal varices. 2 bands were placed. Diffuse moderately erythematous mucosa without bleeding in the entire examined stomach. Recommendations: ? Clear liquid diet and graduate as tolerated ? Octreotide 50 mcg IV push and then 50 mcg/hour continuous infusion to complete 5 days ? Protonix 40 Mg IV twice daily Of note patient reported that he has quit drinking alcohol more than 20 years ago. However he endorses being an alcoholic in the past drinking more than 6 beers per day. Echocardiogram was ordered to further evaluate murmurs heard on exam and for palpitations. Exam Vital Signs Temp Pulse Resp BP Pulse Ox O2 Del Method O2 Flow Rate 98.8 F 60 18 127/60 96 Room Air 3 07/06/24 08:00 07/06/24 08:00 07/06/24 08:00 07/06/24 08:00 07/06/24 08:00 07/06/24 08:00 07/05/24 20:40 Narrative Exam Constitutional Alert, oriented x 3 and comfortable. Elderly male, pale MM and moist HEENT Vision grossly intact. Patent nares. Trachea midline Respiratory Chest normal on inspection and clear auscultation bilaterally Cardiovascular S1 and S2 audible, RRR. 3/6 ejection systolic murmur auscultated at right sternal border with radiation to carotids, 3 and 6 pansystolic murmur heard at apex with radiation to axilla. JVD not assessed Abdominal Soft and non tender to palpation in all quadrants. BS + Genitourinary No bladder tenderness, no flank pain. Normal to palpation Musculoskeletal Extremities tone within normal limits. No LE edema. Neurological CN II - XII grossly intact. Extremity motor and sensation grossly intact. Skin Warm, dry and intact. No apparent lesions. Psychiatric Patient has good affect, is cooperative Objective Labs 07/06/24 04:15 07/06/24 04:15 Labs: Laboratory Results - last 24 hr 07/06/24 04:15 WBC 9.0 RBC 2.51 L Hgb 8.0 L Hct 24.2 L MCV 96 MCH 31.9 MCHC 33.1 RDW Std Deviation 56.9 H Plt Count 86 L Neut % (Auto) 68 Lymph % (Auto) 23 [place] % (Auto) 7 Eos % (Auto) 2 Baso % (Auto) 0 Neut # (Auto) 6.1 Lymph # (Auto) 2.1 [place] # (Auto) 0.6 Eos # (Auto) 0.2 Baso # (Auto) 0.0 Immature Gran # (Auto) 0.06 H Absolute Nucleated RBC 0.03 H Immature Gran % 1 H Nucleated RBC % 0 Sodium 138 Potassium 3.9 D Chloride 108 H Carbon Dioxide 23.2 Anion Gap 7 BUN 29 H Creatinine 1.0 Estim Creat Clear Calc 59.9 L eGFR > 60 BUN/Creatinine Ratio 29 H Glucose 94 Calculated Osmolality 281 Calcium 8.4 Corrected Calcium 9.0 Phosphorus 3.4 Magnesium 2.2 Iron 33 L TIBC 309 Iron Saturation 10 L Unsat Iron Binding 276 Ferritin 28 Total Bilirubin 1.0 AST 41 H ALT 24 Alkaline Phosphatase 75 Total Protein 5.3 L Albumin 3.3 L Globulin 2.0 L Albumin/Globulin Ratio 1.7 Vitamin B12 340 Quality Measures Quality Measures none Advance care planning discussed with:: patient Assessment & Plan Assessment Current Active Medications: Generic Name Dose Route Start Last Admin Trade Name Freq PRN Reason Stop Dose Admin Acetaminophen 650 mg 07/05/24 16:04 Acetaminophen 325 Mg Tablet PO 08/04/24 16:03 Q4HR PRN Pain(1-3) or Fever > 100.4 Hydrocodone Bitart/Acetaminophen 1 tab 07/05/24 16:04 Hydrocodone/Apap 5/325 Tablet PO 07/10/24 16:03 Q4HR PRN PAIN SCALE 4-6 (Moderate Amlodipine Besylate 10 mg 07/06/24 09:00 Amlodipine Besylate 5 Mg Tablet PO 08/05/24 08:59 QDAY NOA Atorvastatin Calcium 10 mg 07/06/24 21:00 Atorvastatin Calcium 10 Mg Tablet PO 08/05/24 20:59 HS NOA Buspirone HCl 2.5 mg 07/05/24 16:08 Buspirone Hcl 5 Mg Tablet PO 08/04/24 16:07 QD PRN AGITATION OR ANXIETY Finasteride 5 mg 07/06/24 09:00 07/06/24 08:23 Finasteride 5 Mg Tablet PO 08/05/24 08:59 5 mg QDAY NOA Administration Octreotide Acetate 1,000 mcg/ 102 mls @ 5.1 mls/hr 07/05/24 20:45 07/05/24 22:00 Sodium Chloride IV 07/10/24 20:41 50 mcg/hr .Q20H NOA 5.1 mls/hr Administration Protocol 50 MCG/HR Morphine Sulfate 2 mg 07/05/24 16:04 Morphine Sulf Inj 10 Mg/Ml Vial IV 07/10/24 16:03 Q4HR PRN PAIN SCALE 7-10 (Severe Ondansetron HCl 4 mg 07/05/24 01:39 Ondansetron Inj 2 Mg/Ml Inj 2 Ml IV 08/04/24 01:38 Q6H PRN NAUSEA OR VOMITING Protocol Pantoprazole Sodium 40 mg 07/05/24 09:00 07/06/24 08:23 Pantoprazole Inj 40 Mg Vial IVP 08/04/24 08:59 40 mg Q12HR NOA Administration Plan Patient initial Hb patient was [id number] male with past medical history of essential hypertension, anxiety or and BPH who presented to the ED with a chief complaint of dizziness. He also had associated vomiting/hematemesis with episode of melena 3 weeks ago and the day prior to admission. Patient was admitted for acute blood loss anemia secondary to GI bleed for investigation. 1. Acute blood loss anemia Secondary to 2. GI bleed for investigation Patient presented with symptomatic anemia, dizziness and palpitations. She also had episode of melena 3 weeks ago as well as the day prior to admission. On exam patient has occasional skipped beats and pale, moist MM. Hb on admission 6.3 which increased to 8.6 after 2 units PRBC infusion. Of note patient had colonoscopy completed on 10/04/2023 findings include: Hemorrhoids on perianal exam, mild sigmoid diverticulosis, mild descending colon diverticulosis and internal hemorrhoids. No polyps were found EGD completed on 07/05/[address] Suero findings include: Three columns of grade 2 esophageal varices. 2 bands were placed. Diffuse moderately erythematous mucosa without bleeding in the entire examined stomach. Recommendations: ? Clear liquid diet and graduate as tolerated ? Octreotide 50 mcg IV push and then 50 mcg/hour continuous infusion to complete 5 days ? Protonix 40 Mg IV twice daily Of note patient reported that he has quit drinking alcohol more than 20 years ago. However he endorses being an alcoholic in the past drinking more than 6 beers per day. Hb stable at 8 Iron panel was significant for FE 33, TIBC 3 9, ferritin 28. Suggestive of iron deficiency. Plan: ? On clear liquid diet to graduate to cardiac diet from the now ? Monitor Hb on CBC - Transfuse with PRBC if Hb < 7 ? Octreotide 50 mcg IV push and then 50 mcg/hour continuous infusion to complete 5 days until 07/10 ? Protonix 40 Mg IV twice daily ? Ondansetron 4 Mg IV every 6 hourly as needed for vomiting ? For colonoscopy as outpatient as per GI recommendations. ? GI, Dr. Suero consulted. Appreciate recommendations 3. Essential hypertension On admission BP 97/68. Currently BP 127/60 Home medication amlodipine 10 Mg p.o. daily Due to low blood pressures and recent GI bleed with symptomatic anemia antihypertensives were initially held Plan: ? To resume home medication, amlodipine 10 Mg p.o. daily from tomorrow. 4. Anxiety Patient is on buspirone 2.5 Mg p.o. as needed for anxiety at home. Plan: ? Resume home medication buspirone 2.5 Mg p.o. as needed 5. BPH Patient on home medication finasteride 5 Mg p.o. daily Plan: ? Resume home medication finasteride 5 Mg p.o. daily 6. Hyperlipidemia Triglycerides 164, cholesterol 109, LDL 51, HDL 25 Plan: ? Patient is older than 77 will start moderate intensity statin. 7. Thrombocytopenia?chronic On admission plt 176 with subsequently down trended to 95. From chart review patient's baseline appears to be between 100/120s. DDx: Dilutional, blood loss, viral infection, B12 deficiency, ITP, aortic Stenosis. TSH and vitamin B12 levels were both normal. 1.34 and 340 respectively. Plan: ? Continue to monitor cbc. 8. Cardiac murmur, unspecified 9. Palpitations Patient also complains of constant palpitations. However he endorses intermittent palpitations for many years On exam patient has a 3?6 ejection systolic murmur heard at the right sternal border with radiation to carotids. He also has a 3 and 6 pansystolic murmur heard at the apex with radiation to the axilla Patient previously saw Dr. Summers, however his last appointment was more than 5 years ago. He states that he had a echocardiogram and a stress test in the past which she reported as normal. Reports not seen Plan: ? Transthoracic echocardiogram ordered to assess for wall motion abnormalities, valvular defects and ejection fraction. ? Possible cardiology consult pending echo findings. Health maintenance: Disposition: Octreotide infusion for 5 days to complete on 07/10. Echocardiogram pending Diet: Clear liquids to graduate to cardiac diet from dinner Lines: pIVs GI Prophylaxis: Protonix Thrombo Prophylaxis: SCDs Code status: FULL CODE Plan of care discussed with Attending Dr. Lane and PGY2 Dr. Raven Meredith MD PGY 1
--- NOTE | 2024-07-06 10:44 | ECHO_ITS ---
Transthoracic Echo Report Ht (in): 68 Wt (lb): 167 Exam Location: [facility] Status: Inpatient Lang Interpreter: Taty Trejo Indications: Procedure Performed: BP: 127 / 60 HR: 60 Technical Quality: Fair MEASUREMENTS (Male / Female) Normal Values 2D ECHO LV Diastolic Diameter PLAX 5.4 cm 4.2 - 5.9 / 3.9 - 5.3 cm LV Systolic Diameter PLAX 3.7 cm IVS Diastolic Thickness 1.0 cm 0.6 - 1.0 / 0.6 - 0.9 cm LVPW Diastolic Thickness 1.0 cm 0.6 - 1.0 / 0.6 - 0.9 cm LV Relative Wall Thickness 0.4 LVOT Diameter 1.9 cm LA Volume Index 45.0 cm?/m? 16 - 28 cm?/m? Ascending Aorta Diameter 2.9 cm M-MODE Aortic Root Diameter MM 2.4 cm LA Systolic Diameter MM 3.8 cm LA Ao Ratio MM 1.6 AV Cusp Separation MM 1.8 cm DOPPLER AV Peak Velocity 357.4 cm/s AV Peak Gradient 51.1 mmHg AV Mean Gradient 35.8 mmHg AV Velocity Time Integral 101.7 cm LVOT Peak Velocity 94.2 cm/s LVOT Peak Gradient 3.5 mmHg LVOT Velocity Time Integral 24.7 cm LVOT Cardiac Index 2192.1 cm?/min?m? AV Area Cont Eq vti 0.7 cm? AV Area Cont Eq pk 0.7 cm? MV Peak Velocity 143.0 cm/s MV Peak Gradient 8.2 mmHg MV Mean Velocity 73.1 cm/s MV Mean Gradient 3.0 mmHg MV Area PHT 3.2 cm? MR Peak Velocity 585.0 cm/s MR Peak Gradient 136.9 mmHg Mitral E Point Velocity 111.0 cm/s Mitral A Point Velocity 84.5 cm/s Mitral E to A Ratio 1.3 LV E' Lateral Velocity 10.3 cm/s Mitral E to LV E' Lateral Ratio 10.8 LV E' Septal Velocity 8.1 cm/s Mitral E to LV E' Septal Ratio 13.8 TR Peak Velocity 149.0 cm/s TR Peak Gradient 8.9 mmHg FINDINGS Left Ventricle Normal left ventricular size, wall thickness, systolic function with no obvious regional wall motion abnormalities. The ejection fraction is visually estimated at 55-60%. Right Ventricle The right ventricle is normal in size and systolic function. The estimated right ventricular systoli c pressure, 19mmHg. Left Atrium The left atrium is mildly dilated. Right Atrium The right atrium is normal by two-dimensional imaging, color flow and Doppler imaging with no struct ural abnormalities, no thrombus formation present. Atrial Septum The interatrial septum appears normal with no evidence of a shunt. Aorta The aorta is normal by two-dimensional, color flow and Doppler interrogation. Mitral Valve The mitral valve is normal by two-dimensional, color flow and Doppler interrogation. There is mild m itral valve regurgitation. Aortic Valve The aortic valve is trileaflet.. There is trace aortic valve regurgitation. Tricuspid Valve The tricuspid valve is normal by two-dimensional, color flow and Doppler interrogation. There is tra ce tricuspid valve regurgitation. Pulmonic Valve There is no significant pulmonic valve regurgitation. Vessels The pulmonary artery appears normal. The inferior vena cava pulmonary and hepatic veins appear eva l. Pericardium The pericardium is normal by two-dimensional imaging. There is no significant pericardial effusion. CONCLUSIONS Mildly dilated left atrium. Aortic valve calcification with good aortic valve cusp separation 18 mm. Peak velocity across the aortic valve and outflow tract into the aorta is 4.2 m/s significantly elev ated with a gradient of 65 mmHg peak gradient across the aortic valve and into the aorta possibly suggesting a supravalvular stenosis as the aortic valve appears to be opening quite well visually. Aortic valve itself appears to show only mild stenosis with excellent aortic valve cusp separation o f at least 18 mm. Left ventricle outflow tract-LVOT velocity is normal suggesting no subaortic stenosis.. Mitral valve thickening mild calcification with mild mitral regurgitation. Normal-sized left ventricle with well-preserved global LV systolic function ejection fraction 60%. Mild tricuspid valve regurgitation. Herminia Rouse (Electronically Signed) Final Date: 06 July 2024 18:25
--- NOTE | 2024-07-06 15:00 | PC.SS ---
Initial assessment: This is 78 year old male admitted for acute blood loss anemia. Patient appeared alert and oriented. Patient informs he lives at home alone. He confirmed home address. Patient's sister, Kena Hooker was identified as the patient's alternate medical surrogate decision maker. Patient describes to be independent with ADL's. Patient denies use of DME at home. Patient's PCP is Dr. Madeline Webb. Pharmacy of choice is [facility] in [place]. The discharge plan was discussed, and the patient would like to return home once medically cleared. Patient's friend, Delilah to assist with transportation home. No needs identified at this time. [employer] representative to remain available to address further concerns. D/c plan: home Next of kin: sister, Kena Hooker
--- NOTE | 2024-07-06 15:05 | PC.SS ---
Rounding note: patient pending echo. Patient to receive Octreotide for five days.
[2024-07-06] MEDS: OCTREOTIDE ACET INJ 1,000 MCG in SODIUM CHLORIDE 0.9% 100 ML 5.1 MCG IV (15:18)
--- NOTE | 2024-07-06 19:49 | PD.IMPROG ---
Documentation for date of: 07/06/24 Subjective Subjective Interval history: Patient evaluated Hemoglobin hematocrit 8.0 and 24.2 Exam Vital Signs Temp Pulse Resp BP Pulse Ox O2 Del Method O2 Flow Rate 97.9 F 71 17 138/63 H 99 Room Air 3 07/06/24 16:00 07/06/24 16:00 07/06/24 16:00 07/06/24 16:00 07/06/24 16:00 07/06/24 16:00 07/05/24 20:40 Objective Labs 07/06/24 04:15 07/06/24 04:15 Labs: Laboratory Results - last 24 hr 07/06/24 04:15 WBC 9.0 RBC 2.51 L Hgb 8.0 L Hct 24.2 L MCV 96 MCH 31.9 MCHC 33.1 RDW Std Deviation 56.9 H Plt Count 86 L Neut % (Auto) 68 Lymph % (Auto) 23 [place] % (Auto) 7 Eos % (Auto) 2 Baso % (Auto) 0 Neut # (Auto) 6.1 Lymph # (Auto) 2.1 [place] # (Auto) 0.6 Eos # (Auto) 0.2 Baso # (Auto) 0.0 Immature Gran # (Auto) 0.06 H Absolute Nucleated RBC 0.03 H Immature Gran % 1 H Nucleated RBC % 0 Sodium 138 Potassium 3.9 D Chloride 108 H Carbon Dioxide 23.2 Anion Gap 7 BUN 29 H Creatinine 1.0 Estim Creat Clear Calc 59.9 L eGFR > 60 BUN/Creatinine Ratio 29 H Glucose 94 Calculated Osmolality 281 Calcium 8.4 Corrected Calcium 9.0 Phosphorus 3.4 Magnesium 2.2 Iron 33 L TIBC 309 Iron Saturation 10 L Unsat Iron Binding 276 Ferritin 28 Total Bilirubin 1.0 AST 41 H ALT 24 Alkaline Phosphatase 75 Total Protein 5.3 L Albumin 3.3 L Globulin 2.0 L Albumin/Globulin Ratio 1.7 Vitamin B12 340 Impressions Impression: # Status post band ligation of esophageal varices # Diffuse gastritis Continue octreotide Advance diet as tolerated Assessment & Plan A&P Narrative # Acute GI bleeding with acute posthemorrhagic anemia in the form of melena hematemesis most likely an upper GI bleed Plan Consent obtained for fiberoptic esophagogastroduodenoscopy with possible biopsy possible therapeutic intervention under intravenous moderate sedation Serial CBC IV Protonix Will follow the patient Other medical problems include # Essential hypertension # Anxiety neurosis # BPH related issues Thank you very much for the opportunity to participate in the care of this patient Time Spent With Patient Time: Total time spent is greater than 50% in coordination of care (as documented) at patient's floor/unit and/or counseling patient:
[2024-07-06] MEDS: ATORVASTATIN CALCIUM 10 MG TABLET PO (20:09)
[2024-07-07] VITALS (10 sets, daily range): BP systolic 104–141; BP diastolic 55–66; PULSE 60–106; RESP 16–95; TEMP 36.6–37.2; O2SAT 94–98; BMI 25.2
[2024-07-07 05:57] LABS: Basophils % (Auto) 0 % (0-2.5); Eosinophils # (Auto) 0.3 Thou/mm3 (0.0-0.5); Eosinophils % (Auto) 5 % (0-10); Hematocrit 22.7 % (41.0-53.0); Immature Granulocytes % (Auto) 0 % (0-0); Immature Granulocytes Auto 0.03 Thou/mm3 (0.00-0.00); Lymphocytes # (Auto) 1.2 Thou/mm3 (1.0-4.8); Lymphocytes % (Auto) 18 % (10-50); Mean Corpuscular Hemoglobin 31.8 pg (25.0-35.0); Mean Corpuscular Volume 96 fL (80-100); Monocytes # (Auto) 0.6 Thou/mm3 (0.0-0.8); Monocytes % (Auto) 9 % (0-12); Neutrophils # (Auto) 4.6 Thou/mm3 (1.8-7.7); Neutrophils % (Auto) 68 % (37-80); Nucleated Red Blood Cell % 0 /100 WBC (0); Platelet Count 88 Thou/mm3 (140-440); RDW Standard Deviation 56.3 fL (35.1-43.9); Red Blood Count 2.36 Miln/mm3 (4.50-5.90); White Blood Count 6.8 Thou/mm3 (3.8-10.6)
[2024-07-07 05:58] LABS: Hemoglobin 7.5 g/dL (13.5-16.0)
[2024-07-07 06:19] LABS: Alanine Aminotransferase 29 U/L (10-49); Albumin, Serum 3.1 gm/dL (3.4-4.8); Albumin/Globulin Ratio 1.6 (1.2-2.2); Alkaline Phosphatase 77 U/L (46-116); Anion Gap 5 (7-16); Aspartate Amino Transferase 39 U/L (0-34); BUN/Creatinine Ratio 16 Ratio (12-20); Bilirubin,Total 0.7 mg/dL (0.3-1.2); Blood Urea Nitrogen 18 mg/dL (9-23); Calcium (Corrected) 8.7 mg/dL (8.5-10.1); Carbon Dioxide 23.9 mMol/L (20.0-31.0); Chloride 106 mMol/L (98-107); Creatinine (Component) 1.1 mg/dL (0.6-1.3); Estimated Creatinine Clearance 54.4 mL/min (>60); Glucose 133 mg/dL (74-106); Magnesium 2.3 mg/dL (1.6-2.6); Osmolality,Calculated 274 (275-295); Phosphorous 3.5 mg/dL (2.4-5.1); Potassium 3.9 mMol/L (3.4-5.1); Sodium 135 mMol/L (136-145); Total Protein 5.1 gm/dL (5.7-8.2); eGFR > 60 See Note
[2024-07-07] MEDS: PANTOPRAZOLE INJ 40 MG VIAL IVP ×2 (08:03→20:23)
[2024-07-07] MEDS: FINASTERIDE 5 MG TABLET PO (08:04)
[2024-07-07] MEDS: OCTREOTIDE ACET INJ 1,000 MCG in SODIUM CHLORIDE 0.9% 100 ML 5.1 MCG IV (09:29)
--- NOTE | 2024-07-07 09:48 | ESPR_ITS ---
<Statement entered by Simon Lane MD - 07/07/24 17:04> I have discussed and was present for the essential components of the history, physical examination, diagnosis, and treatment plan with the resident. I agree with the patient's care as documented by the resident and amended herein by me. Simon Lane MD. <Statement entered by Yoshi Jimenez MD - 07/07/24 14:24> Patient was seen and examined at the bedside. Patient reported that he does not feel any abdominal discomfort and has been doing well after eating food. He will be continued on octreotide drip until July 10 for esophageal versus. Cardiology consulted for further evaluation given echocardiogram showing aortic valve calcification with supravalvular stenosis. Labs revealed hemoglobin 7.5 we will closely monitor rate. All labs and orders were reviewed. I saw and examined the patient, and I agree with current management stated by Dr Pb MD,PGY1. Plan of care was discussed with the attending physician and resident physician. Disclaimer: Despite multiple revisions, due to the dictation software being used, the document bellow may not be free of grammatical errors including phonetic/typographic errors. However, this does not deter from our commitment to providing health care in the patient's best interest in mind. Dr. Tony MD, PGY 2 Documentation for date of: 07/07/24 Subjective Subjective Interval history: Patient was seen and examined at bedside this AM. Patient endorses an episode of dark-colored stool yesterday. Hb stable at 7.5 Tolerating full liquid diet. Mentation at baseline. Patient endorses improvement of dizziness and resolution of his palpitations. Transthoracic echocardiogram completed on 07/06 findings include: Mildly dilated left atrium. Aortic valve calcification with good aortic valve cusp separation 18 mm. Peak velocity across the aortic valve and outflow tract into the aorta is 4.2 m/s significantly elevated with a gradient of 65 mmHg peak gradient across the aortic valve and into the aorta possibly suggesting a supravalvular stenosis as the aortic valve appears to be opening quite well visually. Aortic valve itself appears to show only mild stenosis with excellent aortic valve cusp separation of at least 18 mm. Left ventricle outflow tract-LVOT velocity is normal suggesting no subaortic stenosis.. Mitral valve thickening mild calcification with mild mitral regurgitation. Normal-sized left ventricle with well-preserved global LV systolic function ejection fraction 60%. Mild tricuspid valve regurgitation. Cardiology was consulted for abnormal echo findings and further recommendations on aortic stenosis management. Medical management versus valve replacement. Patient on octreotide infusion for a total of 5 days due to bleeding esophageal varices s/p banding. To complete on 07/10 Exam Vital Signs Temp Pulse Resp BP Pulse Ox O2 Del Method O2 Flow Rate 98.1 F 106 H 19 104/64 98 Room Air 3 07/07/24 07:39 07/07/24 09:29 07/07/24 07:39 07/07/24 09:29 07/07/24 07:39 07/07/24 07:39 07/07/24 07:39 Narrative Exam Constitutional Alert, oriented x 3 and comfortable. Elderly male, pale MM and moist HEENT Vision grossly intact. Patent nares. Trachea midline Respiratory Chest normal on inspection and clear auscultation bilaterally Cardiovascular S1 and S2 audible, RRR. 3/6 ejection systolic murmur auscultated at right sternal border with radiation to carotids, 3/6 pansystolic murmur heard at apex with radiation to axilla. JVD not assessed Abdominal Soft, obese and non tender to palpation in all quadrants. BS + Genitourinary No bladder tenderness, no flank pain. Normal to palpation Musculoskeletal Extremities tone within normal limits. No LE edema. Neurological CN II - XII grossly intact. Extremity motor and sensation grossly intact. Skin Warm, dry and intact. No apparent lesions. Psychiatric Patient has good affect, is cooperative Objective Labs 07/07/24 05:24 07/07/24 05:24 Labs: Laboratory Results - last 24 hr 07/07/24 05:24 WBC 6.8 RBC 2.36 L Hgb 7.5 L Hct 22.7 L MCV 96 MCH 31.8 MCHC 33.0 RDW Std Deviation 56.3 H Plt Count 88 L Neut % (Auto) 68 Lymph % (Auto) 18 [place] % (Auto) 9 Eos % (Auto) 5 Baso % (Auto) 0 Neut # (Auto) 4.6 Lymph # (Auto) 1.2 [place] # (Auto) 0.6 Eos # (Auto) 0.3 Baso # (Auto) 0.0 Immature Gran # (Auto) 0.03 H Absolute Nucleated RBC 0.00 Immature Gran % 0 Nucleated RBC % 0 Sodium 135 L Potassium 3.9 Chloride 106 Carbon Dioxide 23.9 Anion Gap 5 L BUN 18 Creatinine 1.1 Estim Creat Clear Calc 54.4 L eGFR > 60 BUN/Creatinine Ratio 16 Glucose 133 H Calculated Osmolality 274 L Calcium 8.0 L Corrected Calcium 8.7 Phosphorus 3.5 Magnesium 2.3 Total Bilirubin 0.7 AST 39 H ALT 29 Alkaline Phosphatase 77 Total Protein 5.1 L Albumin 3.1 L Globulin 2.0 L Albumin/Globulin Ratio 1.6 Quality Measures Quality Measures none Advance care planning discussed with:: other Assessment & Plan Assessment Current Active Medications: Generic Name Dose Route Start Last Admin Trade Name Freq PRN Reason Stop Dose Admin Acetaminophen 650 mg 07/05/24 16:04 Acetaminophen 325 Mg Tablet PO 08/04/24 16:03 Q4HR PRN Pain(1-3) or Fever > 100.4 Hydrocodone Bitart/Acetaminophen 1 tab 07/05/24 16:04 Hydrocodone/Apap 5/325 Tablet PO 07/10/24 16:03 Q4HR PRN PAIN SCALE 4-6 (Moderate Amlodipine Besylate 10 mg 07/06/24 09:00 07/07/24 09:29 Amlodipine Besylate 5 Mg Tablet PO 08/05/24 08:59 Not Given QDAY NOA Atorvastatin Calcium 10 mg 07/06/24 21:00 07/06/24 20:09 Atorvastatin Calcium 10 Mg Tablet PO 08/05/24 20:59 10 mg HS NOA Administration Buspirone HCl 2.5 mg 07/05/24 16:08 Buspirone Hcl 5 Mg Tablet PO 08/04/24 16:07 QD PRN AGITATION OR ANXIETY Finasteride 5 mg 07/06/24 09:00 07/07/24 08:04 Finasteride 5 Mg Tablet PO 08/05/24 08:59 5 mg QDAY NOA Administration Octreotide Acetate 1,000 mcg/ 102 mls @ 5.1 mls/hr 07/05/24 20:45 07/07/24 09:29 Sodium Chloride IV 07/10/24 20:41 50 mcg/hr .Q20H NOA 5.1 mls/hr Administration Protocol 50 MCG/HR Morphine Sulfate 2 mg 07/05/24 16:04 Morphine Sulf Inj 10 Mg/Ml Vial IV 07/10/24 16:03 Q4HR PRN PAIN SCALE 7-10 (Severe Ondansetron HCl 4 mg 12/04/24 01:39 Ondansetron Inj 2 Mg/Ml Inj 2 Ml IV 08/04/24 01:38 Q6H PRN NAUSEA OR VOMITING Protocol Pantoprazole Sodium 40 mg 07/05/24 09:00 07/07/24 08:03 Pantoprazole Inj 40 Mg Vial IVP 08/04/24 08:59 40 mg Q12HR NOA Administration Sennosides 1 tab 07/08/24 09:00 Senna Tablet PO 07/10/24 08:59 QDAY NOA Protocol Plan Patient initial Hb patient was [id number] male with past medical history of essential hypertension, anxiety or and BPH who presented to the ED with a chief complaint of dizziness. He also had associated vomiting/hematemesis with episode of melena 3 weeks ago and the day prior to admission. Patient was admitted for acute blood loss anemia secondary to GI bleed for investigation. 1. Acute blood loss anemia Secondary to 2. Upper GI bleed 3. Bleeding esophageal varices s/p banding on 07/05 Patient presented with symptomatic anemia, dizziness and palpitations. She also had episode of melena 3 weeks ago as well as the day prior to admission. On exam patient has occasional skipped beats and pale, moist MM. Hb on admission 6.3 which increased to 8.6 after 2 units PRBC infusion. Of note patient had colonoscopy completed on 10/04/2023 findings include: Hemorrhoids on perianal exam, mild sigmoid diverticulosis, mild descending colon diverticulosis and internal hemorrhoids. No polyps were found EGD completed on 07/05/[address] Sureo findings include: Three columns of grade 2 esophageal varices. 2 bands were placed. Diffuse moderately erythematous mucosa without bleeding in the entire examined stomach. Recommendations: ? Clear liquid diet and graduate as tolerated ? Octreotide 50 mcg IV push and then 50 mcg/hour continuous infusion to complete 5 days ? Protonix 40 Mg IV twice daily Of note patient reported that he has quit drinking alcohol more than 20 years ago. However he endorses being an alcoholic in the past drinking more than 6 beers per day. Hb stable at 7.5 Iron panel was significant for FE 33, TIBC 3 9, ferritin 28. Suggestive of iron deficiency. Plan: ? Cardiac diet ? Monitor Hb on CBC - Transfuse with PRBC if Hb < 7 ? Octreotide 50 mcg IV push and then 50 mcg/hour continuous infusion to complete 5 days until 07/10 ? Protonix 40 Mg IV twice daily ? Ondansetron 4 Mg IV every 6 hourly as needed for vomiting ? For colonoscopy as outpatient as per GI recommendations. ? GI, Dr. Suero consulted. Appreciate recommendations 4. Essential hypertension On admission BP 97/68. Currently BP 132/56 Home medication amlodipine 10 Mg p.o. daily Due to low blood pressures and recent GI bleed with symptomatic anemia antihypertensives were initially held Plan: ? Continue medication, amlodipine 10 Mg p.o. daily from tomorrow. 5. Anxiety Patient is on buspirone 2.5 Mg p.o. as needed for anxiety at home. Plan: ? Continue home medication buspirone 2.5 Mg p.o. as needed 6. BPH Patient on home medication finasteride 5 Mg p.o. daily Plan: ? Continue home medication finasteride 5 Mg p.o. daily 7. Hyperlipidemia Triglycerides 164, cholesterol 109, LDL 51, HDL 25 Plan: ? Patient is older than 77 will start moderate intensity statin. 8. Thrombocytopenia?chronic On admission plt 176 with subsequently down trended to 95. From chart review patient's baseline appears to be between 100/120s. DDx: Dilutional, blood loss, viral infection, B12 deficiency, ITP, aortic Stenosis. TSH and vitamin B12 levels were both normal. 1.34 and 340 respectively. Currently platelets 88 Plan: ? Continue to monitor cbc. 9. Severe aortic stenosis? symptomatic 10. Mitral regurgitation 11. Tricuspid regurgitation 12. Palpitations?intermittent Patient also complains of constant palpitations. However he endorses intermittent palpitations for many years. He also had dizziness on this presentation On exam patient has a 3?6 ejection systolic murmur heard at the right sternal border with radiation to carotids. He also has a 3/6 pansystolic murmur heard at the apex with radiation to the axilla Patient previously saw Dr. Summers, however his last appointment was more than 5 years ago. He states that he had a echocardiogram and a stress test in the past which she reported as normal. Reports not seen Upon further questioning patient revealed that he had rheumatic fever as a child. This is the possible etiology of his aortic stenosis along with elderly age and hyperlipidemia. Transthoracic echocardiogram completed on 07/06 findings include: Mildly dilated left atrium. Aortic valve calcification with good aortic valve cusp separation 18 mm. Peak velocity across the aortic valve and outflow tract into the aorta is 4.2 m/s significantly elevated with a gradient of 65 mmHg peak gradient across the aortic valve and into the aorta possibly suggesting a supravalvular stenosis as the aortic valve appears to be opening quite well visually. Aortic valve itself appears to show only mild stenosis with excellent aortic valve cusp separation of at least 18 mm. Left ventricle outflow tract-LVOT velocity is normal suggesting no subaortic stenosis.. Mitral valve thickening mild calcification with mild mitral regurgitation. Normal-sized left ventricle with well-preserved global LV systolic function ejection fraction 60%. Mild tricuspid valve regurgitation. Plan: - Cardiology was consulted for abnormal echo findings and further recommendations on aortic stenosis management. Medical management versus valve replacement. ? Dr. Summers, cardiology consulted. Appreciate recommendations Health maintenance: Disposition: Octreotide infusion for 5 days to complete on 07/10. Awaiting cardiology consult Diet: Cardiac diet Lines: pIVs GI Prophylaxis: Protonix Thrombo Prophylaxis: SCDs Code status: FULL CODE Plan of care discussed with Attending Dr. Lane and PGY2 Dr. Tony Meredith MD PGY 1
[2024-07-07] MEDS: Milk Of Magnesia Susp 30 ML UDC PO (10:07)
--- NOTE | 2024-07-07 10:50 | PC.SS ---
SS follow up note; Patient is on Octreotide drip, patient will discharge in 3 days.
--- NOTE | 2024-07-07 11:00 | CHAP ---
Patient was visited by the Spiritual Care Volunteer who prayed for them. (Volunteer was in the hospital from [facility]. 10:00-11:00)
[2024-07-07] MEDS: amLODIPine BESYLATE 5 MG TABLET 10 MG PO (14:53)
--- NOTE | 2024-07-07 20:04 | PD.IMPROG ---
Documentation for date of: 07/07/24 Subjective Subjective Interval history: Hemoglobin hematocrit 7.5 and 22.7 Patient status post band ligation of the esophageal varices Exam Vital Signs Temp Pulse Resp BP Pulse Ox O2 Del Method O2 Flow Rate 97.8 F 77 20 141/66 H 95 Room Air 3 07/07/24 15:29 07/07/24 15:29 07/07/24 15:29 07/07/24 15:29 07/07/24 15:29 07/07/24 15:29 07/07/24 15:29 Objective Labs 07/07/24 05:24 07/07/24 05:24 Labs: Laboratory Results - last 24 hr 07/07/24 05:24 WBC 6.8 RBC 2.36 L Hgb 7.5 L Hct 22.7 L MCV 96 MCH 31.8 MCHC 33.0 RDW Std Deviation 56.3 H Plt Count 88 L Neut % (Auto) 68 Lymph % (Auto) 18 [place] % (Auto) 9 Eos % (Auto) 5 Baso % (Auto) 0 Neut # (Auto) 4.6 Lymph # (Auto) 1.2 [place] # (Auto) 0.6 Eos # (Auto) 0.3 Baso # (Auto) 0.0 Immature Gran # (Auto) 0.03 H Absolute Nucleated RBC 0.00 Immature Gran % 0 Nucleated RBC % 0 Sodium 135 L Potassium 3.9 Chloride 106 Carbon Dioxide 23.9 Anion Gap 5 L BUN 18 Creatinine 1.1 Estim Creat Clear Calc 54.4 L eGFR > 60 BUN/Creatinine Ratio 16 Glucose 133 H Calculated Osmolality 274 L Calcium 8.0 L Corrected Calcium 8.7 Phosphorus 3.5 Magnesium 2.3 Total Bilirubin 0.7 AST 39 H ALT 29 Alkaline Phosphatase 77 Total Protein 5.1 L Albumin 3.1 L Globulin 2.0 L Albumin/Globulin Ratio 1.6 Impressions Impression: # Acute posthemorrhagic anemia # Status post band ligation of esophageal varices 2 bands were put on Continue current management Assessment & Plan A&P Narrative # Acute GI bleeding with acute posthemorrhagic anemia in the form of melena hematemesis most likely an upper GI bleed Plan Consent obtained for fiberoptic esophagogastroduodenoscopy with possible biopsy possible therapeutic intervention under intravenous moderate sedation Serial CBC IV Protonix Will follow the patient Other medical problems include # Essential hypertension # Anxiety neurosis # BPH related issues Thank you very much for the opportunity to participate in the care of this patient Time Spent With Patient Time: Total time spent is greater than 50% in coordination of care (as documented) at patient's floor/unit and/or counseling patient:
[2024-07-07] MEDS: ATORVASTATIN CALCIUM 10 MG TABLET PO (20:15)
--- NOTE | 2024-07-07 20:51 | ESCONSULT_ITS ---
RE: DAGAMR SHARPE : 1945 DATE OF CONSULTATION: 07/07/2024 CONSULTING PHYSICIANS: Hospitalist Dr. Lane and also Dr. Pb Meredith, resident. REASON FOR CONSULTATION: Evaluation of aortic stenosis, loud systolic murmur. HISTORY OF PRESENT ILLNESS: The patient is a 78-year-old male with a past medical history of hypertension, anxiety, and prostate problems, but never had any cardiac problems. He was doing fairly well until 07/05, two days ago, presented to the hospital with weakness, dizziness, fell and hit his head. The patient had two episodes of vomiting and spitting of blood, hematemesis as well as melena. The patient has had dark stools for about 2 or 3 weeks and the patient came to the hospital with initial hemoglobin of 6.3, hematocrit 19.7. The patient required transfusion. GA workup is being performed by Dr. Suero. Because of loud systolic murmur cardiac echo was obtained, it showed evidence of normal left ventricular function; however, there is evidence of aortic valve calcification with mild stenosis. Valve is opening with 18 mm opening; however, there is a 4 meter velocity across the aortic valve, outflow tract across the aortic valve, possibly suggestive of supravalvular stenosis. There is no subaortic stenosis, velocity is normal in the subaortic area. Because of this findings cardiology consult was recommended. The patient states he is asymptomatic from a cardiac point of view. He never was told to have any heart murmur or heart problems. He was seen by Dr. isaac 15 years ago, but not sure if he found anything abnormal. He did have some dizzy spells, but when he was anemic, but no syncopal episodes. No chest pain, shortness of breath, orthopnea, or paroxysmal nocturnal dyspnea. PAST MEDICAL HISTORY: Hypertension, possible hypertrophy. MEDICATIONS: List at home. 1. He was on Finasteride 5 mg daily. 2. Pantoprazole 40 daily. 3. Amlodipine 10 daily. SOCIAL HISTORY: The patient is not a smoker. He does not drink alcoholic beverages. The patient is retired. FAMILY HISTORY: Noncontributory. REVIEW OF SYSTEMS: Cardiovascular system as described in HPI. No chest pain or orthopnea, PND Gastrointestinal: No history of nausea or vomiting. Genitourinary: No history of frequency or dysuria. TUBE TELLER: No neurological symptoms. PHYSICAL EXAMINATION: GENERAL: Well nourished pleasant male. Alert, awake, in no acute distress. VITAL SIGNS: Blood pressure is 141/66, pulse 77, respirations 29. Temperature is normal. HEENT: Head is atraumatic, normocephalic. Eyes normal. ENT normal. NECK: Supple. No JVD or carotid pulses felt with no bruits. CHEST: Symmetrical. LUNGS: Decreased breath sounds at base. No rales or rhonchi. HEART: S1, S2 regular. S4 gallop heard. There is a loud 4/6 ejection systolic murmur is heard at the left sternal border and to the right of the sternum. LABORATORY DATA: Showed hemoglobin was 6 grams on admission, after transfusion now 7.5, went up to 8.6, came back down 7.5. White count is normal. Chemistry panel is normal. DIAGNOSTIC DATA: Chest x-ray showed evidence of clear lung field. Left ventricle prominent. Aorta is also prominent. IMPRESSION: 1. Loud systolic murmur with findings consistent with aortic stenosis, appears to be supravalvar aortic stenosis since the valve is opening well. 2. Acute gastrointestinal bleeding, requiring transfusion, undergoing workup. The patient was diagnosed to have grade 2 esophageal varices, which are banded. RECOMMENDATIONS: I have recommended medical management for now. Cardiac snell the patient is asymptomatic. We will do transesophageal echo as an outpatient for further evaluation of possible supravalvar stenosis and further workup as an outpatient. Since the patient is asymptomatic from the aortic stenosis point of view, currently no further management. The patient has esophageal varices with bleeding, seen by hvac installation technician. I recommend the patient to see me for followup in 1-2 weeks following discharge for cardiac evaluation again. I would like to thank for referring this pleasant male for cardiovascular evaluation. We will be glad to follow the patient as an outpatient. DT: 19:07:24 TT: 20:07:00 Ref: [id number] - TID: [id number] MTDD
[2024-07-08] VITALS (8 sets, daily range): BP systolic 107–135; BP diastolic 49–68; PULSE 54–74; RESP 17–98; TEMP 36.1–37.1; O2SAT 93–98
[2024-07-08] MEDS: OCTREOTIDE ACET INJ 1,000 MCG in SODIUM CHLORIDE 0.9% 100 ML 5.1 MCG IV ×2 (05:12→22:56)
[2024-07-08 06:19] LABS: Anion Gap 7 (7-16); BUN/Creatinine Ratio 15 Ratio (12-20); Blood Urea Nitrogen 15 mg/dL (9-23); Calcium 8.1 mg/dL (8.3-10.6); Carbon Dioxide 22.7 mMol/L (20.0-31.0); Chloride 107 mMol/L (98-107); Estimated Creatinine Clearance 59.9 mL/min (>60); Glucose 124 mg/dL (74-106); Magnesium 2.1 mg/dL (1.6-2.6); Osmolality,Calculated 275 (275-295); Phosphorous 3.6 mg/dL (2.4-5.1); Potassium 3.9 mMol/L (3.4-5.1); Sodium 137 mMol/L (136-145); eGFR > 60 See Note
[2024-07-08 07:25] LABS: Basophils % (Auto) 1 % (0-2.5); Eosinophils # (Auto) 0.4 Thou/mm3 (0.0-0.5); Eosinophils % (Auto) 8 % (0-10); Hematocrit 22.9 % (41.0-53.0); Immature Granulocytes % (Auto) 0 % (0-0); Immature Granulocytes Auto 0.02 Thou/mm3 (0.00-0.00); Lymphocytes # (Auto) 1.1 Thou/mm3 (1.0-4.8); Lymphocytes % (Auto) 21 % (10-50); Mean Corpuscular HGB Conc 33.2 g/dl (31.0-37.0); Mean Corpuscular Hemoglobin 32.2 pg (25.0-35.0); Mean Corpuscular Volume 97 fL (80-100); Monocytes # (Auto) 0.5 Thou/mm3 (0.0-0.8); Monocytes % (Auto) 10 % (0-12); Neutrophils # (Auto) 3.2 Thou/mm3 (1.8-7.7); Neutrophils % (Auto) 60 % (37-80); Nucleated Red Blood Cell % 0 /100 WBC (0); Platelet Count 98 Thou/mm3 (140-440); RDW Standard Deviation 55.1 fL (35.1-43.9); Red Blood Count 2.36 Miln/mm3 (4.50-5.90); White Blood Count 5.3 Thou/mm3 (3.8-10.6)
[2024-07-08 07:39] LABS: Hemoglobin 7.6 g/dL (13.5-16.0)
[2024-07-08] MEDS: amLODIPine BESYLATE 5 MG TABLET 10 MG PO (08:12)
[2024-07-08] MEDS: PANTOPRAZOLE INJ 40 MG VIAL IVP ×2 (08:12→20:31)
[2024-07-08] MEDS: FINASTERIDE 5 MG TABLET PO (08:13)
[2024-07-08] MEDS: SENNA TABLET 1 TAB PO (08:13)
--- NOTE | 2024-07-08 09:15 | ESPR_ITS ---
<Statement entered by Simon Lane MD - 07/09/24 12:15> I have discussed and was present for the essential components of the history, physical examination, diagnosis, and treatment plan with the resident. I agree with the patient's care as documented by the resident and amended herein by me. Simon Lane MD. Documentation for date of: 07/09/24 Subjective Subjective Interval history: Patient was seen and examined at the bedside. Patient reported that he has been waiting for going home. No active concerns were reported. Patient's hemoglobin was stable and above 7. Coal Miner, Dr. Summers saw the patient and recommended medical management. He informed the patient that he would like to follow-up with him in his clinic for aortic valve workup and would like to do after 1 to 2 weeks. He will perform KALYN as outpatient for further evaluation of possible supravalvular stenosis. Currently we are continuing octreotide drip and will discharge him on July 10 after completion. All labs and orders were reviewed. 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 Eyes open, symmetrical, & clear CARDIO: No chest pain on palpation. Heart RRR, no obvious murmurs PULM: No noted coughing/dyspnea. Lungs CTA B/L GI: Abdomen soft, nondistended, no pain on palpation. BSx4 URO/SCIENTIFIC INVESTIGATOR:: No further abnormalities noted. SKIN/MSK/EXT: No wounds/rashes/edema/amputations, no pain on palpation. Pedal pulses present B/L Objective Labs 07/09/24 04:37 07/09/24 04:37 Labs: Laboratory Results - last 24 hr 07/09/24 04:37 WBC 5.2 RBC 2.49 L Hgb 7.9 L Hct 23.9 L MCV 96 MCH 31.7 MCHC 33.1 RDW Std Deviation 54.2 H Plt Count 97 L Neut % (Auto) 60 Lymph % (Auto) 20 [place] % (Auto) 11 Eos % (Auto) 8 Baso % (Auto) 0 Neut # (Auto) 3.1 Lymph # (Auto) 1.1 [place] # (Auto) 0.6 Eos # (Auto) 0.4 Baso # (Auto) 0.0 Immature Gran # (Auto) 0.02 H Absolute Nucleated RBC 0.00 Immature Gran % 0 Nucleated RBC % 0 Sodium 139 Potassium 4.3 Chloride 106 Carbon Dioxide 26.5 Anion Gap 7 BUN 13 Creatinine 1.1 Estim Creat Clear Calc 54.4 L eGFR > 60 BUN/Creatinine Ratio 12 Glucose 115 H Calculated Osmolality 278 Calcium 8.5 Magnesium 2.2 Quality Measures Quality Measures VTE prophylaxis (scd) Advance care planning discussed with:: patient Assessment & Plan Assessment Current Active Medications: Generic Name Dose Route Start Last Admin Trade Name Freq PRN Reason Stop Dose Admin Acetaminophen 650 mg 07/05/24 16:04 Acetaminophen 325 Mg Tablet PO 08/04/24 16:03 Q4HR PRN Pain(1-3) or Fever > 100.4 Hydrocodone Bitart/Acetaminophen 1 tab 07/05/24 16:04 Hydrocodone/Apap 5/325 Tablet PO 07/10/24 16:03 Q4HR PRN PAIN SCALE 4-6 (Moderate Amlodipine Besylate 10 mg 07/06/24 09:00 07/08/24 08:12 Amlodipine Besylate 5 Mg Tablet PO 08/05/24 08:59 10 mg QDAY NOA Administration Atorvastatin Calcium 10 mg 07/06/24 21:00 07/08/24 20:31 Atorvastatin Calcium 10 Mg Tablet PO 08/05/24 20:59 10 mg HS NOA Administration Buspirone HCl 2.5 mg 07/05/24 16:08 Buspirone Hcl 5 Mg Tablet PO 08/04/24 16:07 QD PRN AGITATION OR ANXIETY Finasteride 5 mg 07/06/24 09:00 07/08/24 08:13 Finasteride 5 Mg Tablet PO 08/05/24 08:59 5 mg QDAY NOA Administration Octreotide Acetate 1,000 mcg/ 102 mls @ 5.1 mls/hr 07/05/24 20:45 07/08/24 22:56 Sodium Chloride IV 07/10/24 20:41 50 mcg/hr .Q20H NOA 5.1 mls/hr Administration Protocol 50 MCG/HR Morphine Sulfate 2 mg 12/04/24 16:04 Morphine Sulf Inj 10 Mg/Ml Vial IV 07/10/24 16:03 Q4HR PRN PAIN SCALE 7-10 (Severe Ondansetron HCl 4 mg 07/05/24 01:39 Ondansetron Inj 2 Mg/Ml Inj 2 Ml IV 08/04/24 01:38 Q6H PRN NAUSEA OR VOMITING Protocol Pantoprazole Sodium 40 mg 07/05/24 09:00 07/08/24 20:31 Pantoprazole Inj 40 Mg Vial IVP 08/04/24 08:59 40 mg Q12HR NOA Administration Sennosides 1 tab 07/08/24 09:00 07/08/24 08:13 Senna Tablet PO 07/10/24 08:59 1 tab QDAY NOA Administration Protocol Plan Patient initial Hb patient was [id number] male with past medical history of essential hypertension, anxiety or and BPH who presented to the ED with a chief complaint of dizziness. He also had associated vomiting/hematemesis with episode of melena 3 weeks ago and the day prior to admission. Patient was admitted for acute blood loss anemia secondary to GI bleed for investigation. #Acute blood loss anemia #Upper GI bleed #Bleeding esophageal varices s/p banding on 07/05 Patient presented with symptomatic anemia, dizziness and palpitations. She also had episode of melena 3 weeks ago as well as the day prior to admission.Of note patient had colonoscopy completed on 10/04/2023 findings include: Hemorrhoids on perianal exam, mild sigmoid diverticulosis, mild descending colon diverticulosis and internal hemorrhoids. No polyps were found EGD completed on 07/05/[address] Suero findings include: Three columns of grade 2 esophageal varices. 2 bands were placed. Diffuse moderately erythematous mucosa without bleeding in the entire examined stomach. Of note patient reported that he has quit drinking alcohol more than 20 years ago. However he endorses being an alcoholic in the past drinking more than 6 beers per day. Plan: ? Cardiac diet ? Monitor Hb on CBC - Transfuse with PRBC if Hb < 7 ? Octreotide 50 mcg IV push and then 50 mcg/hour continuous infusion to complete 5 days until 07/10 ? Protonix 40 Mg IV twice daily ? Ondansetron 4 Mg IV every 6 hourly as needed for vomiting ? For colonoscopy as outpatient as per GI recommendations. ? GI, Dr. Suero consulted. Appreciate recommendations #Essential hypertension On admission BP 97/68. Currently BP 132/56 Home medication amlodipine 10 Mg p.o. daily Due to low blood pressures and recent GI bleed with symptomatic anemia antihypertensives were initially held Plan: ? Continue medication, amlodipine 10 Mg p.o. daily from tomorrow. #Anxiety Patient is on buspirone 2.5 Mg p.o. as needed for anxiety at home. Plan: ? Continue home medication buspirone 2.5 Mg p.o. as needed # BPH Patient on home medication finasteride 5 Mg p.o. daily Plan: ? Continue home medication finasteride 5 Mg p.o. daily #Hyperlipidemia Triglycerides 164, cholesterol 109, LDL 51, HDL 25 Plan: ? Patient is older than 77 will start moderate intensity statin. #Thrombocytopenia?chronic On admission plt 176 with subsequently down trended to 95. From chart review patient's baseline appears to be between 100/120s. DDx: Dilutional, blood loss, viral infection, B12 deficiency, ITP, aortic Stenosis. TSH and vitamin B12 levels were both normal. 1.34 and 340 respectively. Currently platelets 88 Plan: ? Continue to monitor cbc. # Severe aortic stenosis? symptomatic #Mitral regurgitation # Palpitations?intermittent Patient also complains of constant palpitations. However he endorses intermittent palpitations for many years. He also had dizziness on this presentation.On exam patient has a 3?6 ejection systolic murmur heard at the right sternal border with radiation to carotids. He also has a 3/6 pansystolic murmur heard at the apex with radiation to the axilla Patient previously saw Dr. Summers, however his last appointment was more than 5 years ago. He states that he had a echocardiogram and a stress test in the past which she reported as normal. Reports not seen Transthoracic echocardiogram completed on 07/06 findings include: Mildly dilated left atrium. Aortic valve calcification with good aortic valve cusp separation 18 mm. Peak velocity across the aortic valve and outflow tract into the aorta is 4.2 m/s significantly elevated with a gradient of 65 mmHg peak gradient across the aortic valve and into the aorta possibly suggesting a supravalvular stenosis as the aortic valve appears to be opening quite well visually. Aortic valve itself appears to show only mild stenosis with excellent aortic valve cusp separation of at least 18 mm. Left ventricle outflow tract-LVOT velocity is normal suggesting no subaortic stenosis.. Mitral valve thickening mild calcification with mild mitral regurgitation. Normal-sized left ventricle with well-preserved global LV systolic function ejection fraction 60%. Mild tricuspid valve regurgitation. Plan: -Cardiology will follow the patient as outpatient for KALYN and recommended only medical management for now. Will like to see the patient in 1-2 after scheduling appointment as outpatient. Health maintenance: Disposition: Octreotide infusion for 5 days to complete on 07/10. Diet: Cardiac diet Lines: pIVs GI Prophylaxis: Protonix Thrombo Prophylaxis: SCDs Code status: FULL CODE Plan of care discussed with attending physician, Dr. Domingo Jimenez MD, PGY 2
--- NOTE | 2024-07-08 14:06 | PD.IMPROG ---
Documentation for date of: 07/08/24 Subjective Subjective Interval history: Hemoglobin hematocrit 7.6 and 22.9 No signs of any active bleeding Patient status post band ligation of the esophageal varices Exam Vital Signs Temp Pulse Resp BP Pulse Ox O2 Del Method O2 Flow Rate 97.0 F 68 18 110/68 98 Room Air 3 07/08/24 08:00 07/08/24 11:27 07/08/24 11:27 07/08/24 08:12 07/08/24 08:00 07/08/24 08:00 07/07/24 15:29 Constitutional Comments: Alert oriented no signs of any active bleeding Routine Abdominal Exam Comments: Soft nontender Objective Labs 07/09/24 04:37 07/09/24 04:37 Labs: Laboratory Results - last 24 hr 07/04/24 07/08/24 07/08/24 20:40 04:35 07:05 WBC 5.3 RBC 2.36 L Hgb 7.6 L Hct 22.9 L MCV 97 MCH 32.2 MCHC 33.2 RDW Std Deviation 55.1 H Plt Count 98 L Neut % (Auto) 60 Lymph % (Auto) 21 [place] % (Auto) 10 Eos % (Auto) 8 Baso % (Auto) 1 Neut # (Auto) 3.2 Lymph # (Auto) 1.1 [place] # (Auto) 0.5 Eos # (Auto) 0.4 Baso # (Auto) 0.0 Immature Gran # (Auto) 0.02 H Absolute Nucleated RBC 0.00 Immature Gran % 0 Nucleated RBC % 0 Sodium 137 Potassium 3.9 Chloride 107 Carbon Dioxide 22.7 Anion Gap 7 BUN 15 Creatinine 1.0 Estim Creat Clear Calc 59.9 L eGFR > 60 BUN/Creatinine Ratio 15 Glucose 124 H Calculated Osmolality 275 Calcium 8.1 L Phosphorus 3.6 Magnesium 2.1 Crossmatch See Detail Impressions Impression: # Acute posthemorrhagic anemia # Status post band ligation of the esophageal varices Continue to monitor CBC and continue octreotide infusion till 5 days are completed Assessment & Plan A&P Narrative # Acute GI bleeding with acute posthemorrhagic anemia in the form of melena hematemesis most likely an upper GI bleed Plan Consent obtained for fiberoptic esophagogastroduodenoscopy with possible biopsy possible therapeutic intervention under intravenous moderate sedation Serial CBC IV Protonix Will follow the patient Other medical problems include # Essential hypertension # Anxiety neurosis # BPH related issues Thank you very much for the opportunity to participate in the care of this patient Time Spent With Patient Time: Total time spent is greater than 50% in coordination of care (as documented) at patient's floor/unit and/or counseling patient:
[2024-07-08] MEDS: ATORVASTATIN CALCIUM 10 MG TABLET PO (20:31)
--- NOTE | 2024-07-08 20:46 | PC.NURSE ---
per Dr. Suero pt must be on sandostatin drip for a total of 5 days.
[2024-07-09] VITALS (7 sets, daily range): BP systolic 108–132; BP diastolic 50–73; PULSE 56–68; RESP 16–18; TEMP 36.1–36.8; O2SAT 96–99
[2024-07-09 05:31] LABS: Basophils % (Auto) 0 % (0-2.5); Eosinophils # (Auto) 0.4 Thou/mm3 (0.0-0.5); Eosinophils % (Auto) 8 % (0-10); Hematocrit 23.9 % (41.0-53.0); Immature Granulocytes % (Auto) 0 % (0-0); Immature Granulocytes Auto 0.02 Thou/mm3 (0.00-0.00); Lymphocytes # (Auto) 1.1 Thou/mm3 (1.0-4.8); Lymphocytes % (Auto) 20 % (10-50); Mean Corpuscular HGB Conc 33.1 g/dl (31.0-37.0); Mean Corpuscular Hemoglobin 31.7 pg (25.0-35.0); Mean Corpuscular Volume 96 fL (80-100); Monocytes # (Auto) 0.6 Thou/mm3 (0.0-0.8); Monocytes % (Auto) 11 % (0-12); Neutrophils # (Auto) 3.1 Thou/mm3 (1.8-7.7); Neutrophils % (Auto) 60 % (37-80); Nucleated Red Blood Cell % 0 /100 WBC (0); Platelet Count 97 Thou/mm3 (140-440); RDW Standard Deviation 54.2 fL (35.1-43.9); Red Blood Count 2.49 Miln/mm3 (4.50-5.90); White Blood Count 5.2 Thou/mm3 (3.8-10.6)
[2024-07-09 05:33] LABS: Hemoglobin 7.9 g/dL (13.5-16.0)
[2024-07-09 05:50] LABS: Anion Gap 7 (7-16); BUN/Creatinine Ratio 12 Ratio (12-20); Blood Urea Nitrogen 13 mg/dL (9-23); Calcium 8.5 mg/dL (8.3-10.6); Carbon Dioxide 26.5 mMol/L (20.0-31.0); Chloride 106 mMol/L (98-107); Creatinine (Component) 1.1 mg/dL (0.6-1.3); Estimated Creatinine Clearance 54.4 mL/min (>60); Glucose 115 mg/dL (74-106); Magnesium 2.2 mg/dL (1.6-2.6); Osmolality,Calculated 278 (275-295); Potassium 4.3 mMol/L (3.4-5.1); Sodium 139 mMol/L (136-145); eGFR > 60 See Note
--- NOTE | 2024-07-09 07:49 | ESPR_ITS ---
<Statement entered by Simon Lane MD - 07/09/24 17:14> I have discussed and was present for the essential components of the history, physical examination, diagnosis, and treatment plan with the resident. I agree with the patient's care as documented by the resident and amended herein by me. Simon Lane MD FACP. Documentation for date of: 07/09/24 Subjective Subjective Interval history: Patient was seen and examined at bedside this AM. No overnight events. Hb stable at 7.9 Tolerating diet. Adequate urine output. Mentation at baseline. Patient has no complaints today and denies any further episodes of dark-colored stools, dizziness or palpitations. Patient had 1 bowel movement last night which she reported as brown Cardiology, Dr. Summers was consulted for aortic stenosis. He recommended medical management for now and will follow him up as outpatient for KALYN to further evaluate supravalvular aortic stenosis. Patient on octreotide infusion for a total of 5 days due to bleeding esophageal varices s/p banding. To complete on 07/10 Exam Vital Signs Temp Pulse Resp BP Pulse Ox O2 Del Method O2 Flow Rate 97.7 F 64 18 108/50 L 99 Room Air 3 07/09/24 04:00 07/09/24 04:00 07/09/24 04:00 07/09/24 04:00 07/09/24 04:00 07/09/24 04:00 07/08/24 12:00 Narrative Exam Constitutional Alert, oriented x 3 and comfortable. Elderly male, pale MM and moist HEENT Vision grossly intact. Patent nares. Trachea midline Respiratory Chest normal on inspection and clear auscultation bilaterally Cardiovascular S1 and S2 audible, RRR. 3/6 ejection systolic murmur auscultated at right sternal border with radiation to carotids. JVD not assessed Abdominal Soft, obese and non tender to palpation in all quadrants. BS + Genitourinary No bladder tenderness, no flank pain. Normal to palpation Musculoskeletal Extremities tone within normal limits. No LE edema. Neurological CN II - XII grossly intact. Extremity motor and sensation grossly intact. Skin Warm, dry and intact. No apparent lesions. Psychiatric Patient has good affect, is cooperative Objective Labs 07/09/24 04:37 07/09/24 04:37 Labs: Laboratory Results - last 24 hr 07/09/24 04:37 WBC 5.2 RBC 2.49 L Hgb 7.9 L Hct 23.9 L MCV 96 MCH 31.7 MCHC 33.1 RDW Std Deviation 54.2 H Plt Count 97 L Neut % (Auto) 60 Lymph % (Auto) 20 [place] % (Auto) 11 Eos % (Auto) 8 Baso % (Auto) 0 Neut # (Auto) 3.1 Lymph # (Auto) 1.1 [place] # (Auto) 0.6 Eos # (Auto) 0.4 Baso # (Auto) 0.0 Immature Gran # (Auto) 0.02 H Absolute Nucleated RBC 0.00 Immature Gran % 0 Nucleated RBC % 0 Sodium 139 Potassium 4.3 Chloride 106 Carbon Dioxide 26.5 Anion Gap 7 BUN 13 Creatinine 1.1 Estim Creat Clear Calc 54.4 L eGFR > 60 BUN/Creatinine Ratio 12 Glucose 115 H Calculated Osmolality 278 Calcium 8.5 Magnesium 2.2 Quality Measures Quality Measures none Advance care planning discussed with:: patient Assessment & Plan Assessment Current Active Medications: Generic Name Dose Route Start Last Admin Trade Name Freq PRN Reason Stop Dose Admin Acetaminophen 650 mg 07/05/24 16:04 Acetaminophen 325 Mg Tablet PO 08/04/24 16:03 Q4HR PRN Pain(1-3) or Fever > 100.4 Hydrocodone Bitart/Acetaminophen 1 tab 07/05/24 16:04 Hydrocodone/Apap 5/325 Tablet PO 07/10/24 16:03 Q4HR PRN PAIN SCALE 4-6 (Moderate Amlodipine Besylate 10 mg 07/06/24 09:00 07/08/24 08:12 Amlodipine Besylate 5 Mg Tablet PO 08/05/24 08:59 10 mg QDAY NOA Administration Atorvastatin Calcium 10 mg 07/06/24 21:00 07/08/24 20:31 Atorvastatin Calcium 10 Mg Tablet PO 08/05/24 20:59 10 mg HS NOA Administration Buspirone HCl 2.5 mg 07/05/24 16:08 Buspirone Hcl 5 Mg Tablet PO 08/04/24 16:07 QD PRN AGITATION OR ANXIETY Finasteride 5 mg 07/06/24 09:00 07/08/24 08:13 Finasteride 5 Mg Tablet PO 08/05/24 08:59 5 mg QDAY NOA Administration Octreotide Acetate 1,000 mcg/ 102 mls @ 5.1 mls/hr 07/05/24 20:45 07/08/24 22:56 Sodium Chloride IV 07/10/24 20:41 50 mcg/hr .Q20H NOA 5.1 mls/hr Administration Protocol 50 MCG/HR Morphine Sulfate 2 mg 07/05/24 16:04 Morphine Sulf Inj 10 Mg/Ml Vial IV 07/10/24 16:03 Q4HR PRN PAIN SCALE 7-10 (Severe Ondansetron HCl 4 mg 07/05/24 01:39 Ondansetron Inj 2 Mg/Ml Inj 2 Ml IV 08/04/24 01:38 Q6H PRN NAUSEA OR VOMITING Protocol Pantoprazole Sodium 40 mg 07/05/24 09:00 07/08/24 20:31 Pantoprazole Inj 40 Mg Vial IVP 08/04/24 08:59 40 mg Q12HR NOA Administration Sennosides 1 tab 07/08/24 09:00 07/08/24 08:13 Senna Tablet PO 07/10/24 08:59 1 tab QDAY NOA Administration Protocol Plan Patient initial Hb patient was [id number] male with past medical history of essential hypertension, anxiety or and BPH who presented to the ED with a chief complaint of dizziness. He also had associated vomiting/hematemesis with episode of melena 3 weeks ago and the day prior to admission. Patient was admitted for acute blood loss anemia secondary to GI bleed for investigation. 1. Acute blood loss anemia Secondary to 2. Upper GI bleed 3. Bleeding esophageal varices s/p banding on 07/05 Patient presented with symptomatic anemia, dizziness and palpitations. She also had episode of melena 3 weeks ago as well as the day prior to admission. On exam patient has occasional skipped beats and pale, moist MM. Hb on admission 6.3 which increased to 8.6 after 2 units PRBC infusion. Of note patient had colonoscopy completed on 10/04/2023 findings include: Hemorrhoids on perianal exam, mild sigmoid diverticulosis, mild descending colon diverticulosis and internal hemorrhoids. No polyps were found EGD completed on 07/05/[address] Suero findings include: Three columns of grade 2 esophageal varices. 2 bands were placed. Diffuse moderately erythematous mucosa without bleeding in the entire examined stomach. Recommendations: ? Clear liquid diet and graduate as tolerated ? Octreotide 50 mcg IV push and then 50 mcg/hour continuous infusion to complete 5 days ? Protonix 40 Mg IV twice daily Of note patient reported that he has quit drinking alcohol more than 20 years ago. However he endorses being an alcoholic in the past drinking more than 6 beers per day. Hb stable at 7.5 Iron panel was significant for FE 33, TIBC 3 9, ferritin 28. Suggestive of iron deficiency. Plan: ? Cardiac diet ? Monitor Hb on CBC - Transfuse with PRBC if Hb < 7 ? Octreotide 50 mcg IV push and then 50 mcg/hour continuous infusion to complete 5 days until 07/10 ? Protonix 40 Mg IV twice daily ? Ondansetron 4 Mg IV every 6 hourly as needed for vomiting ? For colonoscopy as outpatient as per GI recommendations. ? GI, Dr. Suero consulted. Appreciate recommendations 4. Severe supravalvular aortic stenosis?asymptomatic 5. Mitral regurgitation 6. Tricuspid regurgitation 7. Palpitations?intermittent Patient also complains of constant palpitations. However he endorses intermittent palpitations for many years. He also had dizziness on this presentation On exam patient has a 3?6 ejection systolic murmur heard at the right sternal border with radiation to carotids. He also has a 3/6 pansystolic murmur heard at the apex with radiation to the axilla Patient previously saw Dr. Summers, however his last appointment was more than 5 years ago. He states that he had a echocardiogram and a stress test in the past which she reported as normal. Reports not seen Upon further questioning patient revealed that he had rheumatic fever as a child. This is the possible etiology of his aortic stenosis along with elderly age and hyperlipidemia. Transthoracic echocardiogram completed on 07/06 findings include: Mildly dilated left atrium. Aortic valve calcification with good aortic valve cusp separation 18 mm. Peak velocity across the aortic valve and outflow tract into the aorta is 4.2 m/s significantly elevated with a gradient of 65 mmHg peak gradient across the aortic valve and into the aorta possibly suggesting a supravalvular stenosis as the aortic valve appears to be opening quite well visually. Aortic valve itself appears to show only mild stenosis with excellent aortic valve cusp separation of at least 18 mm. Left ventricle outflow tract-LVOT velocity is normal suggesting no subaortic stenosis.. Mitral valve thickening mild calcification with mild mitral regurgitation. Normal-sized left ventricle with well-preserved global LV systolic function ejection fraction 60%. Mild tricuspid valve regurgitation. Plan: - Cardiology, Dr. Summers recommended medical management for now and will follow him up as outpatient for KALYN to further evaluate supravalvular aortic stenosis. ? Patient will need a referral from his PCP in order to follow-up with Dr. 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 ? Dr. Summers, cardiology consulted. Appreciate recommendations 8. Essential hypertension On admission BP 97/68. Currently BP 108/50 Home medication amlodipine 10 Mg p.o. daily Due to low blood pressures and recent GI bleed with symptomatic anemia antihypertensives were initially held Plan: ? Continue medication, amlodipine 10 Mg p.o. daily from tomorrow. 9. Anxiety Patient is on buspirone 2.5 Mg p.o. as needed for anxiety at home. Plan: ? Continue home medication buspirone 2.5 Mg p.o. as needed 10. BPH Patient on home medication finasteride 5 Mg p.o. daily Plan: ? Continue home medication finasteride 5 Mg p.o. daily 11. Hyperlipidemia Triglycerides 164, cholesterol 109, LDL 51, HDL 25 Plan: ? Continue atorvastatin 10 Mg p.o. at bedtime 12. Thrombocytopenia?chronic On admission plt 176 with subsequently down trended to 95. From chart review patient's baseline appears to be between 100?120s. DDx: Dilutional, blood loss, viral infection, B12 deficiency, ITP, aortic Stenosis. TSH and vitamin B12 levels were both normal. 1.34 and 340 respectively. Currently platelets 115 Plan: ? Continue to monitor cbc. Health maintenance: Disposition: Octreotide infusion for 5 days to complete on 07/10. Follow-up with cardiology as outpatient for severe supravalvular aortic stenosis Diet: Cardiac diet Lines: pIVs GI Prophylaxis: Protonix Thrombo Prophylaxis: SCDs Code status: FULL CODE Plan of care discussed with Attending Dr. Lane and PGY3 Dr. Virginie Meredith MD PGY 1 I discussed with and supervised my co-resident involved in the care of this patient. I agree with the assessment and plan as documented above. Patient admitted for acute symptomatic anemia secondary to esophageal varices s/p banding. On octreotide drip until 07/10, then will discharge to home. Patient to follow up with glass unloading equipment tender outpatient for aortic stenosis workup and evaluation. Marissa Rachel MD PGY-3
[2024-07-09] MEDS: amLODIPine BESYLATE 5 MG TABLET 10 MG PO (09:20)
[2024-07-09] MEDS: FINASTERIDE 5 MG TABLET PO (09:21)
[2024-07-09] MEDS: PANTOPRAZOLE INJ 40 MG VIAL IVP ×2 (09:22→20:06)
[2024-07-09] MEDS: SENNA TABLET 1 TAB PO (09:22)
--- NOTE | 2024-07-09 15:30 | PD.IMPROG ---
Documentation for date of: 07/09/24 Subjective Subjective Interval history: Hemoglobin hematocrit at 7.9 and 23.9 Exam Vital Signs Temp Pulse Resp BP Pulse Ox O2 Del Method O2 Flow Rate 98.0 F 62 17 117/73 96 Room Air 3 07/09/24 12:00 07/09/24 12:00 07/09/24 12:00 07/09/24 12:00 07/09/24 12:00 07/09/24 12:00 07/08/24 12:00 Objective Labs 07/09/24 04:37 07/09/24 04:37 Labs: Laboratory Results - last 24 hr 07/09/24 04:37 WBC 5.2 RBC 2.49 L Hgb 7.9 L Hct 23.9 L MCV 96 MCH 31.7 MCHC 33.1 RDW Std Deviation 54.2 H Plt Count 97 L Neut % (Auto) 60 Lymph % (Auto) 20 [place] % (Auto) 11 Eos % (Auto) 8 Baso % (Auto) 0 Neut # (Auto) 3.1 Lymph # (Auto) 1.1 [place] # (Auto) 0.6 Eos # (Auto) 0.4 Baso # (Auto) 0.0 Immature Gran # (Auto) 0.02 H Absolute Nucleated RBC 0.00 Immature Gran % 0 Nucleated RBC % 0 Sodium 139 Potassium 4.3 Chloride 106 Carbon Dioxide 26.5 Anion Gap 7 BUN 13 Creatinine 1.1 Estim Creat Clear Calc 54.4 L eGFR > 60 BUN/Creatinine Ratio 12 Glucose 115 H Calculated Osmolality 278 Calcium 8.5 Magnesium 2.2 Impressions Impression: # Acute posthemorrhagic anemia # Status post band ligation of the esophageal varices Continue to monitor CBC Assessment & Plan A&P Narrative # Acute GI bleeding with acute posthemorrhagic anemia in the form of melena hematemesis most likely an upper GI bleed Plan Consent obtained for fiberoptic esophagogastroduodenoscopy with possible biopsy possible therapeutic intervention under intravenous moderate sedation Serial CBC IV Protonix Will follow the patient Other medical problems include # Essential hypertension # Anxiety neurosis # BPH related issues Thank you very much for the opportunity to participate in the care of this patient Time Spent With Patient Time: Total time spent is greater than 50% in coordination of care (as documented) at patient's floor/unit and/or counseling patient:
[2024-07-09] MEDS: ATORVASTATIN CALCIUM 10 MG TABLET PO (20:06)
[2024-07-09] MEDS: OCTREOTIDE ACET INJ 1,000 MCG in SODIUM CHLORIDE 0.9% 100 ML 5.1 MCG IV (23:25)
[2024-07-10] VITALS: BP 115/72; PULSE 62; RESP 18; TEMP 36.7; O2SAT 95
[2024-07-10 04:00] VITALS: BP 117/53; PULSE 57; RESP 18; TEMP 36.5; O2SAT 97
[2024-07-10 05:19] LABS: Basophils % (Auto) 1 % (0-2.5); Eosinophils # (Auto) 0.4 Thou/mm3 (0.0-0.5); Eosinophils % (Auto) 7 % (0-10); Hematocrit 25.2 % (41.0-53.0); Immature Granulocytes % (Auto) 0 % (0-0); Immature Granulocytes Auto 0.02 Thou/mm3 (0.00-0.00); Lymphocytes # (Auto) 1.1 Thou/mm3 (1.0-4.8); Lymphocytes % (Auto) 21 % (10-50); Mean Corpuscular HGB Conc 32.5 g/dl (31.0-37.0); Mean Corpuscular Hemoglobin 31.4 pg (25.0-35.0); Mean Corpuscular Volume 97 fL (80-100); Monocytes # (Auto) 0.5 Thou/mm3 (0.0-0.8); Monocytes % (Auto) 9 % (0-12); Neutrophils # (Auto) 3.2 Thou/mm3 (1.8-7.7); Neutrophils % (Auto) 62 % (37-80); Nucleated Red Blood Cell % 0 /100 WBC (0); Platelet Count 104 Thou/mm3 (140-440); RDW Standard Deviation 53.3 fL (35.1-43.9); Red Blood Count 2.61 Miln/mm3 (4.50-5.90); White Blood Count 5.2 Thou/mm3 (3.8-10.6)
[2024-07-10 05:27] LABS: Hemoglobin 8.2 g/dL (13.5-16.0)
[2024-07-10 05:39] LABS: Anion Gap 6 (7-16); BUN/Creatinine Ratio 12 Ratio (12-20); Blood Urea Nitrogen 13 mg/dL (9-23); Calcium 8.4 mg/dL (8.3-10.6); Carbon Dioxide 26.4 mMol/L (20.0-31.0); Chloride 105 mMol/L (98-107); Creatinine (Component) 1.1 mg/dL (0.6-1.3); Estimated Creatinine Clearance 54.4 mL/min (>60); Glucose 159 mg/dL (74-106); Magnesium 2.2 mg/dL (1.6-2.6); Osmolality,Calculated 276 (275-295); Potassium 4.2 mMol/L (3.4-5.1); Sodium 137 mMol/L (136-145); eGFR > 60 See Note
[2024-07-10 07:58] VITALS: BP 125/65; PULSE 52; RESP 17; TEMP 36.8; O2SAT 97
--- NOTE | 2024-07-10 08:36 | ESDS_ITS ---
<Statement entered by Yoshi Jimenez MD - 07/10/24 15:32> I saw and examined the patient, and I agree with current management stated by Dr Pb MD,PGY1. Plan of care was discussed with the attending physician and resident physician. Disclaimer: Despite multiple revisions, due to the dictation software being used, the document bellow may not be free of grammatical errors including phonetic/typographic errors. However, this does not deter from our commitment to providing health care in the patient's best interest in mind. Dr. Tony MD, PGY 2 Planned Discharge Date 07/10/24 DS: Providers Provider Date of admission: 07/05/24 01:37 Primary care physician: Madeline Webb MD Admitting Provider: Zack Green MD Attending Provider on Admission: Simon Lane MD Consults: 07/05/24 01:05 Consult to Gastroenterology Stat Comment: Consulting Provider: Marizol Suero Attending Provider on DC: Pb Meredith MD Discharging Provider: Francisco Diaz DO DS: Diagnosis Problem List Completed Was Problem List Reviewed/Reconciled?: Yes Hospital Course Hospital Course Hospital course: Patient is a 78-year-old male with past medical history of essential hypertension, anxiety or and BPH who presented to the ED with a chief complaint of dizziness. He also had associated vomiting/hematemesis with episode of melena 3 weeks ago and the day prior to admission. Patient was admitted for acute blood loss anemia secondary to GI bleed for investigation. Patient's initial Hb was 6.3 which increased to 8.6 after 2 units of PRBC infusion. Patient had a previous colonoscopy from 10/04/2023 which just showed external and internal hemorrhoids, mild sigmoid and descending colon diverticulosis. On admission EGD completed on 07/05/[address] Suero findings include: Three columns of grade 2 esophageal varices. 2 bands were placed. Diffuse moderately erythematous mucosa without bleeding in the entire examined stomach. Patient was subsequently started on octreotide infusion for total of 5 days from 07/05 - 07/10 along with Protonix 40 Mg IV twice daily as per GI, Dr. Suero recommendation. Patient also had iron panel done which was significant for FE 33, TIBC 3 9, ferritin 28 suggestive of iron deficiency and he was also started on oral iron. Patient will also need a colonoscopy as outpatient as per GI recommendations. Upon exam patient has a 3?6 ejection systolic murmur heard at the right sternal border with radiation to carotids.Upon further questioning patient revealed that he had rheumatic fever as a child. Cardiology, Dr. Summers was consulted. He recommended medical management for now for asymptomatic aortic stenosis and will follow him up as outpatient for KALYN to further evaluate supravalvular aortic stenosis. Transthoracic echocardiogram completed on 07/06 findings include: Mildly dilated left atrium. Aortic valve calcification with good aortic valve cusp separation 18 mm. Peak velocity across the aortic valve and outflow tract into the aorta is 4.2 m/s significantly elevated with a gradient of 65 mmHg peak gradient across the aortic valve and into the aorta possibly suggesting a supravalvular stenosis as the aortic valve appears to be opening quite well visually. Aortic valve itself appears to show only mild stenosis with excellent aortic va lve cusp separation of at least 18 mm. Left ventricle outflow tract-LVOT velocity is normal suggesting no subaortic stenosis.. Mitral valve thickening mild calcification with mild mitral regurgitation. Normal-sized left ventricle with well-preserved global LV systolic function ejection fraction 60%. Mild tricuspid valve regurgitation. All patient's labs are now returning to his baseline. Patient is now clinically stable and fit for discharge back to home. Discharge diagnoses: 1. Acute blood loss anemia?resolving acute 2. GI bleed?resolved 3. Bleeding esophageal varices s/p banding on 07/05 4. Severe supravalvular aortic stenosis?asymptomatic 5. Mitral regurgitation?mild 6. Tricuspid regurgitation?mild 7. Palpitations?intermittent 8. Essential hypertension 9. Anxiety 10. BPH 11. Hyperlipidemia 12. Thrombocytopenia?chronic Discharge plan: -We have held your blood pressure medication Amlodipine for now due to your low blood pressure until you see your primary doctor -Take all home medications as prescribed -Follow-up with PCP as outpatient within 2 weeks -Stop taking NSAIDs or blood thinners to avoid GI bleeding -Follow-up with PCP for outpatient referral for colonoscopy -Follow-up with marketing and outreach coordinator as outpatient after getting referral from PCP for aortic valve murmur -In case of emergency, call 911 or come back to the emergency department We are grateful to be able to participate in Mr. Mcguire's care. We wish him the best. Plan of care discussed with Attending Dr. Diaz and PGAshish Meredith MD PGY 1 Time Spent with Patient Time attestation: Total time spent providing and/or coordinating discharge services: Time spent: Greater than 30 minutes (36) Exam Vital Signs Temp Pulse Resp BP Pulse Ox O2 Del Method O2 Flow Rate 98.3 F 52 L 17 125/65 97 Room Air 3 07/10/24 07:58 07/10/24 07:58 07/10/24 07:58 07/10/24 07:58 07/10/24 07:58 07/10/24 07:58 07/08/24 12:00 Narrative Exam Constitutional Alert, oriented x 3 and comfortable. Elderly male, pale MM and moist HEENT Vision grossly intact. Patent nares. Trachea midline Respiratory Chest normal on inspection and clear auscultation bilaterally Cardiovascular S1 and S2 audible, RRR. 3/6 ejection systolic murmur auscultated at right sternal border with radiation to carotids. JVD not assessed Abdominal Soft, obese and non tender to palpation in all quadrants. BS + Genitourinary No bladder tenderness, no flank pain. Normal to palpation Musculoskeletal Extremities tone within normal limits. No LE edema. Neurological CN II - XII grossly intact. Extremity motor and sensation grossly intact. Skin Warm, dry and intact. No apparent lesions. Psychiatric Patient has good affect, is cooperative Discharge Plan Plan Patient Disposition: HOME (Self Care) Patient condition on transfer: Stable Care Plan Goals: We have held your blood pressure medication Amlodipine for now due to your low blood pressure until you see your primary doctor Take all home medications as prescribed Follow-up with PCP as outpatient within 2 weeks Stop taking NSAIDs or blood thinners to avoid GI bleeding Follow-up with PCP for outpatient referral for colonoscopy Follow-up with marketing and outreach coordinator as outpatient after getting referral from PCP for aortic valve murmur In case of emergency, call 911 or come back to the ED Prescriptions/Referrals Prescriptions/Med Rec: New pantoprazole 40 mg tablet,delayed release (DR/EC) 40 mg PO QDAY Qty: 14 0RF Continued finasteride 5 mg tablet 5 mg PO DAILY Patient Comments: take 1 tablet by mouth once daily buspirone 5 mg tablet 2.5 mg PO PRN PRN (Reason: Anxiety) Patient Comments: take 1/2 to 1 tablet once daily if needed Held amlodipine 10 mg tablet 10 mg PO DAILY Hold Instructions: Resume on 07/10/24. until you see marketing and outreach coordinator, Dr Summers Hold for a week Patient Comments: take 1 tablet by mouth once daily Discontinued diclofenac-misoprostol 75-200 mg-mcg tablet,IR,delayed rel,biphasic 1 tab PO BID PRN (Reason: Pain) Patient Comments: take 1 tablet by mouth twice a day if needed for SEVERE back and leg pain Referrals: Marizol Suero MD [Physician] - Madeline Webb MD [Primary Care Provider] - Fernanda Summers MD [Physician] - Patient/Caregiver Discharge Instructions Education Materials: Esophageal Varices, ED Diet, Melba (Adult), ED Upper GI Bleeding (Stable) Print Language: Bur[place]ian Stand Alone Forms: Marya Award Info., Patient Portal Info Letter Discharge Order Discharge Orders: Discharge (Routine); Ordered 07/10/24 Ordered By: Marissa Rachel Quality Discharge Quality Measures VTE prophylaxis Attestestation MD Attestation I have discussed and was present for the essential components of the discharge history, physical examination, diagnosis, and discharge treatment plan with the resident. I agree with the patient's discharge care as documented by the resident and amended herein by me. Godfrey Diaz DO. The patient understood all discharge instructions, all questions were answered satisfactorily. The patient was instructed to return to the Emergency Department is symptoms worsened or persisted. Although this document has been carefully reviewed, there may still be some phonetic and other typographical errors. These errors are purely grammatical due to imperfections in the software program and should not be construed in any way to compromise the substance of the patient's medical care during this visit.
[2024-07-10] MEDS: PANTOPRAZOLE INJ 40 MG VIAL IVP (08:37)
[2024-07-10 08:38] VITALS: BP 125/65; PULSE 52
[2024-07-10] MEDS: amLODIPine BESYLATE 5 MG TABLET 10 MG PO (08:38)
[2024-07-10] MEDS: FINASTERIDE 5 MG TABLET PO (08:38)
== END 2024-07-10 11:14 | disposition home or self-care (01) | DRG 369 ==
LOC: SERX 07-05 01:08 → SERHOLD 07-05 02:15 → S3NX 07-05 08:00
PROVIDERS: Physician Assistant; Specialist; Admitting Provider Internal Medicine; Emergency Provider Emergency Medicine; PCP Internal Medicine; Visit Provider Student in an Organized Health Care Education/Training Program
PROC: 06L38CZ Occlusion of Esophageal Vein with Extraluminal Device, Via Natural or Artificial Opening Endoscopic (ICD-10-PCS; CPT 43239; principal; 2024-07-05 22:00)
DX: I85.01 Esophageal varices with bleeding (principal); D62 Acute posthemorrhagic anemia; N40.0 Benign prostatic hyperplasia without lower urinary tract symptoms; I10 Essential (primary) hypertension; Z63.4 Disappearance and death of family member; I08.3 Combined rheumatic disorders of mitral, aortic and tricuspid valves; R00.2 Palpitations; E78.5 Hyperlipidemia, unspecified; D69.6 Thrombocytopenia, unspecified; F41.1 Generalized anxiety disorder
CPT/HCPCS: 36415; 36430; 70450; 71045; 71275; 72125; 74174; 80048; 80053; 80061; 80307; 82607; 82728; 83540; 83550; 83690; 83735; 83880; 84100; 84443; 84484; 85014; 85018; 85025; 85610; 85730; 86850; 86900; 86901; 86923; 93005; 93306; 96374; 96375; 99291; A4649; J1200; J2250; J2354; J2405; J2470; J3010; J7050; P9016; Q9967; A9270

== ENCOUNTER → 2024-07-17 | Outpatient (CLI) | payer MEDICARE, BC, SELFPAY ==
[2024-07-17 08:31] LABS: Basophils % (Auto) 0 % (0-2.5); Eosinophils # (Auto) 0.2 Thou/mm3 (0.0-0.5); Eosinophils % (Auto) 4 % (0-10); Hematocrit 27.8 % (41.0-53.0); Immature Granulocytes % (Auto) 0 % (0-0); Immature Granulocytes Auto 0.01 Thou/mm3 (0.00-0.00); Lymphocytes # (Auto) 1.2 Thou/mm3 (1.0-4.8); Lymphocytes % (Auto) 23 % (10-50); Mean Corpuscular HGB Conc 31.3 g/dl (31.0-37.0); Mean Corpuscular Hemoglobin 29.7 pg (25.0-35.0); Mean Corpuscular Volume 95 fL (80-100); Monocytes # (Auto) 0.4 Thou/mm3 (0.0-0.8); Monocytes % (Auto) 8 % (0-12); Neutrophils # (Auto) 3.3 Thou/mm3 (1.8-7.7); Neutrophils % (Auto) 64 % (37-80); Nucleated Red Blood Cell % 0 /100 WBC (0); Platelet Count 144 Thou/mm3 (140-440); RDW Standard Deviation 54.4 fL (35.1-43.9); Red Blood Count 2.93 Miln/mm3 (4.50-5.90); White Blood Count 5.2 Thou/mm3 (3.8-10.6)
[2024-07-17 08:40] LABS: Hemoglobin 8.7 g/dL (13.5-16.0)
[2024-07-17 08:44] LABS: Iron 25 mcg/dL (65-175)
[2024-07-17 08:48] LABS: Alanine Aminotransferase 44 U/L (10-49); Albumin, Serum 3.5 gm/dL (3.4-4.8); Albumin/Globulin Ratio 1.4 (1.2-2.2); Alkaline Phosphatase 154 U/L (46-116); Anion Gap 8 (7-16); Aspartate Amino Transferase 52 U/L (0-34); BUN/Creatinine Ratio 17 Ratio (12-20); Bilirubin,Total 0.5 mg/dL (0.3-1.2); Blood Urea Nitrogen 15 mg/dL (9-23); Calcium 9.2 mg/dL (8.3-10.6); Calcium (Corrected) 9.6 mg/dL (8.5-10.1); Carbon Dioxide 25.5 mMol/L (20.0-31.0); Chloride 109 mMol/L (98-107); Creatinine (Component) 0.9 mg/dL (0.6-1.3); Globulin 2.5 gm/dL (2.3-3.5); Glucose 113 mg/dL (74-106); Osmolality,Calculated 284 (275-295); Potassium 4.5 mMol/L (3.4-5.1); Sodium 142 mMol/L (136-145); eGFR > 60 See Note
[2024-07-17 08:51] LABS: Vitamin B12 625 pg/mL (211-911)
== END | disposition home or self-care (01) ==
LOC: COPL 07:43
PROVIDERS: PCP Internal Medicine; Referring Provider Internal Medicine; Visit Provider Internal Medicine
DX: D50.0 Iron deficiency anemia secondary to blood loss (chronic) (principal); I10 Essential (primary) hypertension
CPT/HCPCS: 36415; 80053; 82607; 83540; 85025

== ENCOUNTER → 2024-08-14 | Outpatient (CLI) | payer MEDICARE, BC, SELFPAY ==
[2024-08-14 11:58] LABS: Basophils % (Auto) 1 % (0-2.5); Eosinophils # (Auto) 0.1 Thou/mm3 (0.0-0.5); Eosinophils % (Auto) 3 % (0-10); Hematocrit 41.5 % (41.0-53.0); Hemoglobin 12.8 g/dL (13.5-16.0); Immature Granulocytes % (Auto) 0 % (0-0); Immature Granulocytes Auto 0.01 Thou/mm3 (0.00-0.00); Lymphocytes # (Auto) 1.1 Thou/mm3 (1.0-4.8); Lymphocytes % (Auto) 27 % (10-50); Mean Corpuscular HGB Conc 30.8 g/dl (31.0-37.0); Mean Corpuscular Hemoglobin 29.6 pg (25.0-35.0); Mean Corpuscular Volume 96 fL (80-100); Monocytes # (Auto) 0.4 Thou/mm3 (0.0-0.8); Monocytes % (Auto) 9 % (0-12); Neutrophils # (Auto) 2.4 Thou/mm3 (1.8-7.7); Neutrophils % (Auto) 61 % (37-80); Nucleated Red Blood Cell % 0 /100 WBC (0); Platelet Count 111 Thou/mm3 (140-440); RDW Standard Deviation 62.5 fL (35.1-43.9); Red Blood Count 4.32 Miln/mm3 (4.50-5.90)
[2024-08-14 12:05] LABS: Iron 112 mcg/dL (65-175)
[2024-08-14 18:43] LABS: Alanine Aminotransferase 49 U/L (10-49); Albumin, Serum 4.4 gm/dL (3.4-4.8); Albumin/Globulin Ratio 1.5 (1.2-2.2); Alkaline Phosphatase 144 U/L (46-116); Anion Gap 9 (7-16); Aspartate Amino Transferase 58 U/L (0-34); BUN/Creatinine Ratio 17 Ratio (12-20); Blood Urea Nitrogen 15 mg/dL (9-23); Calcium 9.6 mg/dL (8.3-10.6); Calcium (Corrected) 9.6 mg/dL (8.5-10.1); Chloride 106 mMol/L (98-107); Creatinine (Component) 0.9 mg/dL (0.6-1.3); Free T4 (Free Thyroxine) 0.99 ng/dL (0.89-1.76); Glucose 109 mg/dL (74-106); Osmolality,Calculated 283 (275-295); Potassium 4.5 mMol/L (3.4-5.1); Sodium 141 mMol/L (136-145); Thyroid Stimulating Hormone 1.53 uIU/mL (0.55-4.78); Total Protein 7.4 gm/dL (5.7-8.2); eGFR > 60 See Note
== END | disposition home or self-care (01) ==
LOC: COPL 10:55
PROVIDERS: PCP Internal Medicine; Referring Provider Internal Medicine; Visit Provider Internal Medicine
DX: D50.0 Iron deficiency anemia secondary to blood loss (chronic) (principal); I10 Essential (primary) hypertension
CPT/HCPCS: 36415; 80053; 83540; 84439; 84443; 85025

== ENCOUNTER 2024-08-28 09:30 | Day surgery (SDC) | payer MEDICARE, BC, SELFPAY ==
[2024-08-25 13:54] VITALS: BMI 28.8
[2024-08-28] VITALS (10 sets, daily range): BP systolic 123–154; BP diastolic 62–87; PULSE 60–90; RESP 15–24; TEMP 36.3–36.5; O2SAT 94–100; BMI 29.5
[2024-08-28] MEDS: MIDAZOLAM INJ 1 MG/ML VIAL 2 ML (ASD USE ONLY) 2 MG IV (11:14)
[2024-08-28] MEDS: DiphenhydrAMINE INJ 50 MG/ML VIAL 25 MG IV (11:20)
[2024-08-28] MEDS: ONDANSETRON INJ 2 MG/ML INJ 2 ML 4 MG IV (11:20)
[2024-08-28] MEDS: fentaNYL CIT INJ 50 mCg/ML AMP 2ML (ASD USE ONLY) IV (11:20)
--- NOTE | 2024-08-28 12:25 | SUR.PHASEII ---
discharge instructions given to pt per pt request, pt verbalizes understanding at this time, discharge instructions highlighted and copies given to pt.
== END 2024-08-28 12:25 | disposition home or self-care (01) ==
PROVIDERS: PCP Internal Medicine; Referring Provider Specialist; Visit Provider Specialist
PROC: (CPT 43239; principal; 2024-08-28 12:15)
DX: I85.11 Secondary esophageal varices with bleeding (principal); I10 Essential (primary) hypertension; Z79.899 Other long term (current) drug therapy; N40.0 Benign prostatic hyperplasia without lower urinary tract symptoms; K76.6 Portal hypertension; K29.61 Other gastritis with bleeding
CPT/HCPCS: 43244; A4649; J1200; J2250; J2405; J3010

== ENCOUNTER 2024-11-13 10:00 | Day surgery (SDC) | payer MEDICARE, BC, SELFPAY ==
[2024-11-13] VITALS (10 sets, daily range): BP systolic 117–151; BP diastolic 57–85; PULSE 65–75; RESP 14–22; TEMP 36.7–37.1; O2SAT 91–96; BMI 31.8
[2024-11-13] MEDS: SODIUM CHLORIDE 0.9% 500 ML 500 ML 20 ML IV (11:25)
[2024-11-13] MEDS: fentaNYL CIT INJ 50 mCg/ML AMP 2ML (ASD USE ONLY) IV (11:35)
[2024-11-13] MEDS: DiphenhydrAMINE INJ 50 MG/ML VIAL 25 MG IV (11:35)
[2024-11-13] MEDS: MIDAZOLAM INJ 1 MG/ML VIAL 2 ML (ASD USE ONLY) 2 MG IV ×2 (11:35→11:39)
--- NOTE | 2024-11-13 12:32 | SUR.PHASEII ---
1220 Pt remains very drowsy, yet approp. Denies pain or N/V-then drifts back to sleep. Abdomen remains soft. No bleeding seen. 1234 Pt more awake. 02 weaned off. Pt jude po fluids.
== END 2024-11-13 12:42 | disposition home or self-care (01) ==
PROVIDERS: PCP Internal Medicine; Referring Provider Specialist; Visit Provider Specialist
PROC: (CPT 43239; principal; 2024-11-13 12:30)
DX: K29.71 Gastritis, unspecified, with bleeding (principal); K76.6 Portal hypertension; I85.01 Esophageal varices with bleeding; I85.11 Secondary esophageal varices with bleeding
CPT/HCPCS: 43244; A4649; J1200; J2250; J3010; J7040

== ENCOUNTER 2024-11-15 14:00 | Emergency (ER) | payer MEDICARE, BC, SELFPAY ==
[2024-11-15 14:44] VITALS: BP 166/70; PULSE 76; RESP 18; TEMP 37; O2SAT 94; BMI 31.0
--- NOTE | 2024-11-15 14:49 | EDRME_ITS ---
Rapid Medical Screening Exam [facility] Arrival date/time: 11/15/24 14:00 79-year-old male with no known medical history presents to the emergency room with a chief complaint of difficulty eating, chest pain, right upper quadrant abdominal pain. Patient states he recently had a esophagus procedure by a Dr. Suero. Patient states he tried to follow-up with the specialist [place]. I have greeted and performed a focused initial assessment of this patient. A comprehensive ED assessment and evaluation of the patient, analysis of all test results, and completion of the medical decision making process will be conducted by additional ED providers. Chief Complaint: General Adult/Misc Complain Time Seen by Provider: 11/15/24 14:31 Vital signs: Vital Signs Temperature 98.6 F 11/15/24 14:44 Pulse Rate 76 11/15/24 14:44 Respiratory Rate 18 11/15/24 14:44 Blood Pressure 166/70 H 11/15/24 14:44 Pulse Oximetry (%) 94 L 11/15/24 14:44 Oxygen Delivery Method Room Air 11/15/24 14:44 Vital signs reviewed by provider: Yes
--- NOTE | 2024-11-15 14:52 | XR_ITS ---
Examination: Abdomen sonogram, Limited Date and time of exam: November 15, 2024 1522 hours INDICATIONS: Onset right upper abdominal pain today Technique: Real-time yip scale transabdominal sonographic images of the upper abdomen obtained. Findings: Negative for gallstones Common bile duct 0.3 cm Pancreatic head 3.3 cm Liver 11.3 cm, right lobe hypoechoic liver lesion 3.0 x 2.5 x 2.7 cm Normal hepatopedal portal venous flow Patent IVC IMPRESSION: Recommend MRI abdomen follow-up pre and postcontrast, elective to assess right lobe liver lesion Normal gallbladder Normal common bile duct
[2024-11-15 16:02] LABS: Basophils % (Auto) 0 % (0-2.5); Eosinophils # (Auto) 0.1 Thou/mm3 (0.0-0.5); Eosinophils % (Auto) 1 % (0-10); Hematocrit 39.3 % (41.0-53.0); Hemoglobin 13.5 g/dL (13.5-16.0); Immature Granulocytes % (Auto) 0 % (0-0); Immature Granulocytes Auto 0.03 Thou/mm3 (0.00-0.00); Lymphocytes % (Auto) 14 % (10-50); Mean Corpuscular HGB Conc 34.4 g/dl (31.0-37.0); Mean Corpuscular Hemoglobin 34.5 pg (25.0-35.0); Mean Corpuscular Volume 101 fL (80-100); Monocytes # (Auto) 0.9 Thou/mm3 (0.0-0.8); Monocytes % (Auto) 12 % (0-12); Neutrophils # (Auto) 5.5 Thou/mm3 (1.8-7.7); Neutrophils % (Auto) 73 % (37-80); Nucleated Red Blood Cell % 0 /100 WBC (0); Platelet Count 114 Thou/mm3 (140-440); Red Blood Count 3.91 Miln/mm3 (4.50-5.90); White Blood Count 7.5 Thou/mm3 (3.8-10.6)
[2024-11-15 16:14] LABS: INR 1.1 (0.9-1.3); Partial Thromboplastin Time 29.5 Seconds (22.0-36.0); Prothrombin Time 12.2 Seconds (9.0-12.2)
[2024-11-15 16:28] LABS: Alanine Aminotransferase 51 U/L (10-49); Albumin/Globulin Ratio 1.3 (1.2-2.2); Alkaline Phosphatase 145 U/L (46-116); Anion Gap 8 (7-16); Aspartate Amino Transferase 68 U/L (0-34); BUN/Creatinine Ratio 12 Ratio (12-20); Bilirubin,Total 1.5 mg/dL (0.3-1.2); Blood Urea Nitrogen 11 mg/dL (9-23); Carbon Dioxide 25.3 mMol/L (20.0-31.0); Chloride 105 mMol/L (98-107); Creatinine (Component) 0.9 mg/dL (0.6-1.3); Estimated Creatinine Clearance 72.3 mL/min (>60); Globulin 3.2 gm/dL (2.3-3.5); Glucose 100 mg/dL (74-106); Lipase 29 U/L (12-53); Osmolality,Calculated 275 (275-295); Sodium 138 mMol/L (136-145); Total Protein 7.2 gm/dL (5.7-8.2); eGFR > 60 See Note
[2024-11-15 17:58] LABS: Collection Type, Urine Clean Catch; Squamous Epithelial Cell,Urine 0 /hpf (0-5); WBC,Urine 0 /hpf (0-5)
[2024-11-15 18:11] LABS: Bacteria,Urine Rare; Bilirubin,Urine Negative (Negative); Blood,Urine 1+ (Negative); Clarity,Urine Clear (Clear/Hazy); Color,Urine Yellow (Lt Yel-Yel); Culture Indicated,Urine Not Indicated; Glucose, Urine Negative (Negative); Ketones,Urine Negative (Negative); Leukocyte Esterase,Urine Negative (Negative); Nitrite,Urine Negative (Negative); Protein,Urine Negative (Neg - Trace); RBC,Urine 4 /hpf (0-3); Specific Gravity,Urine 1.018 (1.001-1.035); Urobilinogen,Urine Negative mg/dL (0.0-1.0)
--- NOTE | 2024-11-15 18:52 | PD.EDADULT ---
ED General RME/HPI General Chief complaint: General Adult/Misc Complain Stated complaint: PAINFUL EATING S/P THROAT SURGERY Time Seen by Provider: 11/15/24 14:31 Arrival date/time: 11/15/24 14:00 RME / HPI RME / HPI narrative: 11/15/24 14:00 79-year-old male with no known medical history presents to the emergency room with a chief complaint of difficulty eating, chest pain, right upper quadrant abdominal pain. Patient states he recently had a esophagus procedure by a Dr. Suero. Patient states he tried to follow-up [place] the [place] I have greeted and performed a focused initial assessment of this patient. A comprehensive ED assessment and evaluation of the patient, analysis of all test results, and completion of the medical decision making process will be conducted by additional ED providers. ------- This section includes all my notes and documentations, including HPI, PE, and ED course. Madan Ponce MD HPI: 79yo male with a history of HTN, BPH, gastric ulcer, esophageal varices presents to the ED for upper abdominal pain and pain in the left flank area. Patient states he had an endoscopy done by Dr. Suero on 11/13/24, reporting he has since has left flank pain that worsens when he coughs. He denies any fever, chills, N/V or any other associated symptoms. He is not on any medications for his gastric ulcer. No other complaints reported. ROS: All negative except as documented in HPI. Physical Exam: General: Alert and oriented. No acute distress when remaining still. Eyes: Conjunctivae and lids clear. ENT: No nasal congestion. Neck: Supple. Heart: RRR. Lungs: No respiratory distress. Good air movement. No rhonchi, wheezing, rales. Abdomen: Soft with RUQ tenderness and equivocal left flank tenderness. Normal bowel sounds. No distension. No rebound or guarding. Back: No CVA tenderness. Skin: Warm and dry. Neuro: Alert and oriented X 3. I reviewed all diagnostic test results. My review of the gallbladder US report is NAD. Blood tests and urine tests unremarkable. At this point, diagnoses include stomach ulcer and abdominal muscle strain. Recommended outpatient treatment. Based on my best medical judgment, made decision no further evaluation or treatment indicated at this time. Patient understands and agrees to the discharge instructions customized and printed, see below. Discharge instructions from Dr. Ponce: ?After evaluation, your right sided upper abdominal pain is due to stomach ulcer. And your left-sided pain is due to muscle strain, tears of tiny muscle fibers. ?To help heal the ulcer, take Omeprazole 40 mg every morning and Famotidine 40 mg for 2 weeks then as needed. ?Avoid food and beverages that can trigger and worsen ulcers. See attached handout. --For your left-sided muscle strain pain, activity as tolerated. Expect coughing to cause the pain. Apply ice or heat if helpful. And lidocaine patches as needed. Tylenol codeine for severe pain. ?See a private doctor on 11/20/2024 for recheck and further care. Ask to review all test results and official radiology reports, to make sure you receive all necessary follow-ups and monitoring. ?Seek immediate medical care with worsening or with any concerns. Madan Ponce MD Related Data Home Medications ?Medication ?Instructions ?Recorded ?Confirmed amlodipine 10 mg tablet 10 mg PO QDAY 08/28/24 11/13/24 ferrous sulfate 325 mg (65 mg 325 mg PO BID 08/28/24 11/13/24 iron) tablet (iron) finasteride 5 mg tablet 5 mg PO QDAY 08/28/24 11/13/24 tolterodine 4 mg capsule,extended 4 mg PO QDAY 08/28/24 11/13/24 release 24 hr azelastine 137 mcg (0.1 %) nasal 1 spray intranasal Q12H 11/13/24 11/13/24 spray folic acid 1 mg tablet 1 mg PO QDAY 11/13/24 11/13/24 montelukast 10 mg tablet 10 mg PO QDAY 11/13/24 11/13/24 thiamine HCl (vitamin B1) 100 mg 100 mg PO QDAY 11/13/24 11/13/24 tablet Previous Rx's ?Medication ?Instructions ?Recorded acetaminophen 300 mg-codeine 30 mg 2 tab PO Q8H PRN pain #20 tabs 11/15/24 tablet famotidine 40 mg tablet 40 mg PO .bedtime #30 tabs 11/15/24 omeprazole 40 mg capsule,delayed 40 mg PO QDAY #30 caps 11/15/24 release Allergies Allergy/AdvReac Type Severity Reaction Status Date / Time No Known Allergies Allergy Verified 11/15/24 14:02 Review of Systems Review of Systems Systems Reviewed: All systems reviewed, normal except as documented Past Medical History Past Medical History NEUROLOGIC: Negative Neurological Disorders or Seizures CARDIAC: Positive Cardiac Disorders and Hypertension; Negative Cardiac Arrhythmia, Atrial Fibrillation, Angina, Heart Murmur, Coronary Artery Disease, Atherosclerotic Heart Disease, Hypercholesterolemia, Aneurysm, Congestive Heart Failure, Congenital Heart Disease, Cardiomyopathy or Deep Vein Thrombosis RESPIRATORY: Negative Chronic Obstructive Pulmonary Disease (COPD) or Asthma GASTROINTESTINAL: Positive Gastrointestinal Disorders (gastritis), Esophageal Varices and Diverticulosis; Negative Hepatitis, Cirrhosis, Celiac Disease, Gall Bladder Disease, Gastrointestinal Bleed, Abbott's Esophagus, Colitis, Diverticulitis, Crohn's Disease or Gastroesophageal Reflux Disease GENITOURINARY: Positive Genitourinary Disorders and Benign Prostatic Hyperplasia; Negative Renal Disease MUSCULOSKELETAL: Positive Musculoskeletal Disorders and Arthritis ENT: Positive Cataracts (bilateral) ENDOCRINE: Negative Endocrine Disorders, Diabetes Mellitus Type 1 or Diabetes Mellitus Type 2 HEMATOLOGIC: Negative Blood Disorders or Sickle Cell Disease OTHER HISTORY: Positive Blood Transfusions; Negative Autoimmune Disease, Blood Transfusion Reaction, Anesthesia Reactions, MRSA, VRSA, Vancomycin-Resistant Enterococci, Clostridium Difficile or Cancer Family History FAMILY HISTORY: Positive Family Cardiac Disorders (dad); Negative Family Psychiatric Problems, Family Respiratory Disorders, Family Gastrointestinal Problems, Family Cancer, Family Surgery or Family Anesthesia Reaction Surgical History SURGICAL: Positive Eye Surgery (bilat cataract) and Joint Replacement; Negative Cardiac Surgery, Endocrine Surgery, Thyroidectomy, Ear Surgery, Tympanostomy Tube, Nose Surgery, Abdominal Surgery, Nephrectomy, Neurologic Surgery, Brain Shunt, Mastectomy or Vasectomy Social History SMOKING STATUS: Never smoker ED Exam Narrative Physical exam: As noted in HPI. Course Quality Measures none Orders Category Date Time Status US gall bladder Stat Exams 11/15/24 14:52 Completed CBC Stat Lab 11/15/24 15:27 Completed CMP [Comprehensive Metabolic Panel] Stat Lab 11/15/24 15:39 Completed Lipase Stat Lab 11/15/24 15:39 Completed PT [Prothrombin Time with INR] Stat Lab 11/15/24 15:39 Completed PTT [Partial Thromboplastin Time] Stat Lab 11/15/24 15:39 Completed UA, C/S IF [Urinalysis, C/S if Indicated] Stat Lab 11/15/24 17:34 Completed Vital Signs Vital signs: Vital Signs Temperature 98.6 F 11/15/24 14:44 Pulse Rate 76 11/15/24 14:44 Respiratory Rate 18 11/15/24 14:44 Blood Pressure 166/70 H 11/15/24 14:44 Pulse Oximetry (%) 94 L 11/15/24 14:44 Oxygen Delivery Method Room Air 11/15/24 14:44 [facility] Patient data External records reviewed:: [facility] previous records (Per chart review, patient had an endoscopy done on 11/13/[address] Suero.) Clinical information provided by:: patient Social determinants that could affect healthcare access:: none Patient has the following chronic illnesses:: HTN, BPH, gastric ulcer, esophageal varices How is presenting disease/condition affected by chronic disease/condition?: exacerbated by Evaluation data The following diagnostics were reviewed and interpreted by me:: lab results and radiology exam(s) Lab and/or radiology exams considered but not ordered:: none Interpretation Summary: Stomach ulcer, Abdominal muscle strain Medications Medications considered but not ordered:: none Medication administrations:: none Consultations Consultation(s) initiated? (list below): No Diagnosis Differential Diagnosis ED Complaint MDM: PUD, GERD, gastritis, UTI, pyelonephritis, ureteral stone, musculoskeletal Most likely diagnosis given after review of the tests above:: Stomach ulcer, Abdominal muscle strain Admission Indicated Admission indicated?: not indicated Explain why admission is indicated or not indicated:: No criteria for admission. Admission Request Was there a request for admission?: No Disposition Plan Disposition Plan: Discharge Discharge Attestation Discharge Attestation: The patient and all family members were given an opportunity to ask questions and understood the discharge instructions. Discharge instructions specifically effects, indications for sooner follow up or return to the emergency department, and the expected course of current diagnosis. Patient condition: Stable Medical Decision Making [facility] Narrative [facility] Narrative: Scribe Attestation: 11/15/24 - Katherine Bronson am scribing for and in the presence of Dr. Ponce. Differential Diagnosis Differential Diagnosis: PUD, GERD, gastritis, UTI, pyelonephritis, ureteral stone, musculoskeletal Lab Data 11/15/24 15:27 11/15/24 15:39 Labs: Lab Results 11/15/24 11/15/24 11/15/24 Range/Units 15:27 15:39 17:34 WBC 7.5 (3.8-10.6) Thou/mm3 RBC 3.91 L (4.50-5.90) Miln/mm3 Hgb 13.5 (13.5-16.0) g/dL Hct 39.3 L (41.0-53.0) % MCV 101 H (80-100) fL MCH 34.5 (25.0-35.0) pg MCHC 34.4 (31.0-37.0) g/dl RDW Std Deviation 55.0 H (35.1-43.9) fL Plt Count 114 L (140-440) Thou/mm3 Neut % (Auto) 73 (37-80) % Lymph % (Auto) 14 (10-50) % [place] % (Auto) 12 (0-12) % Eos % (Auto) 1 (0-10) % Baso % (Auto) 0 (0-2.5) % Neut # (Auto) 5.5 (1.8-7.7) Thou/mm3 Lymph # (Auto) 1.0 (1.0-4.8) Thou/mm3 [place] # (Auto) 0.9 H (0.0-0.8) Thou/mm3 Eos # (Auto) 0.1 (0.0-0.5) Thou/mm3 Baso # (Auto) 0.0 (0.0-0.2) Thou/mm3 Immature Gran # (Auto) 0.03 H (0.00-0.00) Thou/mm3 Absolute Nucleated RBC 0.00 (0.00-0.00) Thou/mm3 Immature Gran % 0 (0-0) % Nucleated RBC % 0 (0) /100 WBC PT 12.2 (9.0-12.2) Seconds INR 1.1 (0.9-1.3) APTT 29.5 (22.0-36.0) Seconds Sodium 138 (136-145) mMol/L Potassium 4.0 (3.4-5.1) mMol/L Chloride 105 (98-107) mMol/L Carbon Dioxide 25.3 (20.0-31.0) mMol/L Anion Gap 8 (7-16) BUN 11 (9-23) mg/dL Creatinine 0.9 (0.6-1.3) mg/dL Estim Creat Clear Calc 72.3 (>60) mL/min eGFR > 60 (60 - ) See Note BUN/Creatinine Ratio 12 (12-20) Ratio Glucose 100 (74-106) mg/dL Calculated Osmolality 275 (275-295) Calcium 9.0 (8.3-10.6) mg/dL Corrected Calcium 9.0 (8.5-10.1) mg/dL Total Bilirubin 1.5 H (0.3-1.2) mg/dL AST 68 H (0-34) U/L ALT 51 H (10-49) U/L Alkaline Phosphatase 145 H (46-116) U/L Total Protein 7.2 (5.7-8.2) gm/dL Albumin 4.0 (3.4-4.8) gm/dL Globulin 3.2 (2.3-3.5) gm/dL Albumin/Globulin Ratio 1.3 (1.2-2.2) Lipase 29 (12-53) U/L Ur Collection Type Clean Catch Urine Color Yellow (Lt Yel-Yel) Urine Clarity Clear (Clear/Hazy) Urine pH 6.0 (5.0-7.0) Ur Specific [place] 1.018 (1.001-1.035) Urine Protein Negative (Neg - Trace) Urine Glucose (UA) Negative (Negative) Urine Ketones Negative (Negative) Urine Blood 1+ A (Negative) Urine Nitrite Negative (Negative) Urine Bilirubin Negative (Negative) Urine Urobilinogen (Auto) Negative (0.0-1.0) mg/dL Ur Leukocyte Esterase Negative (Negative) Urine RBC 4 H (0-3) /hpf Urine WBC 0 (0-5) /hpf Ur Squamous Epith Cells 0 (0-5) /hpf Urine Bacteria Rare (None) Ur Culture Indicated? Not Indicated Discharge Plan Plan Patient Disposition: HOME (Self Care) Prescriptions/Referrals Prescriptions/Med Rec: New famotidine 40 mg tablet 40 mg PO .bedtime Qty: 30 0RF acetaminophen-codeine 300-30 mg tablet 2 tab PO Q8H MDD 6 PRN (Reason: pain) Qty: 20 0RF omeprazole 40 mg capsule,delayed release(DR/EC) 40 mg PO QDAY Qty: 30 0RF No Action tolterodine 4 mg capsule,extended release 24hr 4 mg PO QDAY Patient Comments: take 1 capsule by mouth once daily amlodipine 10 mg tablet 10 mg PO QDAY Patient Comments: take 1 tablet by mouth once daily ferrous sulfate [iron] 325 mg (65 mg iron) Tablet 325 mg PO BID finasteride 5 mg tablet 5 mg PO QDAY Patient Comments: take 1 tablet by mouth once daily folic acid 1 mg tablet 1 mg PO QDAY Patient Comments: take 1 tablet by mouth once daily thiamine HCl (vitamin B1) 100 mg tablet 100 mg PO QDAY Patient Comments: take 1 capsule by mouth once daily azelastine 137 mcg (0.1 %) spray,non-aerosol 1 spray INTRANASAL Q12H montelukast 10 mg tablet 10 mg PO QDAY Referrals: Madeline Webb MD [Primary Care Provider] - In 1 week Problem List Clinical Impression: Stomach ulcer, Abdominal muscle strain Patient/Caregiver Discharge Instructions Discharge Activity: activity as tolerated Education Materials: ED Muscle Strain, Abdomen, ED PEPTIC ULCER vs GASTRITIS Additional Instructions: Discharge instructions from Dr. Ponce: ?After evaluation, your right sided upper abdominal pain is due to stomach ulcer. And your left-sided pain is due to muscle strain, tears of tiny muscle fibers. ?To help heal the ulcer, take Omeprazole 40 mg every morning and Famotidine 40 mg for 2 weeks then as needed. ?Avoid food and beverages that can trigger and worsen ulcers.? See attached handout. --For your left-sided muscle strain pain, activity as tolerated. Expect coughing to cause the pain. Apply ice or heat if helpful. And lidocaine patches as needed. Tylenol codeine for severe pain. ?See a private doctor on 11/20/2024 for recheck and further care. Ask to review all test results and official radiology reports, to make sure you receive all necessary follow-ups and monitoring. ?Seek immediate medical care with worsening or with any concerns. Print Language: Uzbek Stand Alone Forms: [facility] Award Info., Patient Portal Info Letter
== END 2024-11-15 19:10 | disposition home or self-care (01) ==
PROVIDERS: Nurse Practitioner Family; Emergency Provider Emergency Medicine; PCP Internal Medicine
DX: K25.9 Gastric ulcer, unspecified as acute or chronic, without hemorrhage or perforation (principal); S39.011A Strain of muscle, fascia and tendon of abdomen, initial encounter; I10 Essential (primary) hypertension; N40.0 Benign prostatic hyperplasia without lower urinary tract symptoms
CPT/HCPCS: 36415; 76705; 80053; 81001; 83690; 85025; 85610; 85730; 99284

== ENCOUNTER 2025-02-10 04:24 | Emergency (ER) | payer MEDICARE, BC, SELFPAY ==
[2025-02-10 04:39] VITALS: BP 147/85; PULSE 87; RESP 18; TEMP 36.9; O2SAT 96
--- NOTE | 2025-02-10 04:43 | EDNOTE_ITS ---
<Statement entered by Elba Vargas MD - 02/12/25 18:54> As co-signing physician, I was present and available for consult prn. I concur with the plan and care as documented by the midlevel provider. ED Allergic Reaction RME/HPI General Chief complaint: Skin/Abscess/Foreign Body Stated complaint: RASH Time Seen by Provider: 02/10/25 04:38 Arrival date/time: 02/10/25 04:24 79M with history of HTN, anxiety, and UGIB presents to ED with 1 week of itchy rash on bilateral buttocks/thighs. Limitations: no limitations Related Data Home Medications ?Medication ?Instructions ?Recorded ?Confirmed amlodipine 10 mg tablet 10 mg PO QDAY 08/28/2411/13 ferrous sulfate 325 mg (65 mg 325 mg PO BID 08/28/24 0 11/13/24 iron) tablet (iron) finasteride 5 mg tablet 5 mg PO QDAY 08/28/24 tolterodine 4 mg capsule,extended 4 mg PO QDAY 5 11/13/24 release 24 hr azelastine 137 mcg (0.1 %) nasal 1 spray intranasal Q1 2H 11/13/24 11/13/24 spray folic acid 1 mg tablet 1 mg PO QDAY 11/13/24 montelukast 10 mg tablet 10 mg PO QDAY 11/13/2411/13 thiamine HCl (vitamin B1) 100 mg 100 mg PO QDAY 11/13/24 tablet Previous Rx's ?Medication ?Instructions ?Recorded acetaminophen 300 mg-codeine 30 mg 2 tab PO Q8H PRN pa in #20 tabs 11/15/24 tablet famotidine 40 mg tablet 40 mg PO .bedtime #30 tabs 0 11/15/24 omeprazole 40 mg capsule,delayed 40 mg PO QDAY #30 cap s 11/15/24 release prednisone 20 mg tablet 20 mg PO BID 3 days #6 tabs 02/10/25 Allergies Allergy/AdvReac Type Severity Reaction Status Date / Time No Known Allergies Allergy Verified 02/10/25 04:25 Review of Systems Review of Systems Systems Reviewed: All systems reviewed, normal except as documented Constitutional Constitutional: Reports system reviewed and no additional complaints, except as documented, Denies fever(s) and Denies headache(s) ENT Ears, Nose, Mouth, and Throat: Denies disequilibrium and Denies headache(s) Cardiovascular Cardiovascular: Reports system reviewed and no additional complaints, except as documented, Denies chest pain and Denies dyspnea Respiratory Respiratory: Reports system reviewed and no additional complaints, except as documented, Denies cough and Denies dyspnea Gastrointestinal Gastrointestinal: Reports system reviewed and no additional complaints, except as documented, Denies abdominal pain, Denies nausea and Denies vomiting Integumentary/Breasts Skin/Breast: Reports as per HPI, Reports pruritus and Reports rash Neurologic Neurologic: Reports system reviewed and no additional complaints, except as documented, Denies confusion, Denies disequilibrium and Denies headache(s) Psychiatric Psychiatric: Denies confusion Past Medical History Past Medical History NEUROLOGIC: Negative Neurological Disorders or Seizures CARDIAC: Positive Cardiac Disorders and Hypertension; Negative Cardiac Arrhythmia, Atrial Fibrillation, Angina, Heart Murmur, Coronary Artery Disease, Atherosclerotic Heart Disease, Hypercholesterolemia, Aneurysm, Congestive Heart Failure, Congenital Heart Disease, Cardiomyopathy or Deep Vein Thrombosis RESPIRATORY: Negative Chronic Obstructive Pulmonary Disease (COPD) or Asthma GASTROINTESTINAL: Positive Gastrointestinal Disorders (gastritis), Esophageal Varices and Diverticulosis; Negative Hepatitis, Cirrhosis, Celiac Disease, Gall Bladder Disease, Gastrointestinal Bleed, Abbott's Esophagus, Colitis, Diverticulitis, Crohn's Disease or Gastroesophageal Reflux Disease GENITOURINARY: Positive Genitourinary Disorders and Benign Prostatic Hyperplasia; Negative Renal Disease MUSCULOSKELETAL: Positive Musculoskeletal Disorders and Arthritis ENT: Positive Cataracts (bilateral) ENDOCRINE: Negative Endocrine Disorders, Diabetes Mellitus Type 1 or Diabetes Mellitus Type 2 HEMATOLOGIC: Negative Blood Disorders or Sickle Cell Disease OTHER HISTORY: Positive Blood Transfusions; Negative Autoimmune Disease, Blood Transfusion Reaction, Anesthesia Reactions, MRSA, VRSA, Vancomycin-Resistant Enterococci, Clostridium Difficile or Cancer Family History FAMILY HISTORY: Positive Family Cardiac Disorders (dad); Negative Family Psychiatric Problems, Family Respiratory Disorders, Family Gastrointestinal Problems, Family Cancer, Family Surgery or Family Anesthesia Reaction Surgical History SURGICAL: Positive Eye Surgery (bilat cataract) and Joint Replacement; Negative Cardiac Surgery, Endocrine Surgery, Thyroidectomy, Ear Surgery, Tympanostomy Tube, Nose Surgery, Abdominal Surgery, Nephrectomy, Neurologic Surgery, Brain Shunt, Mastectomy or Vasectomy Social History SMOKING STATUS: Never smoker ED Exam General Limitations: Present no limitations General appearance: Present alert and in no apparent distress Head Head exam: Present atraumatic Eye Eye exam: Present normal appearance, PERRL and EOMI ENT ENT exam: Present normal exam, normal oropharynx and mucous membranes moist Neck Neck exam: Present normal inspection, full ROM and trachea midline Chest Chest inspection: Present normal inspection and symmetric chest wall rise Respiratory Respiratory exam: Present normal lung sounds bilaterally Cardiovascular Cardiovascular exam: Present regular rate, normal rhythm and normal heart sounds Abdominal Exam Abdominal exam: Present soft and normal bowel sounds Extremities Exam Extremities exam: Present normal inspection and full ROM Back Exam Back exam: Present normal inspection and full ROM Neurological Exam Neurological exam: Present alert, oriented X3 and CN II-XII intact Psychiatric Psychiatric exam: Present normal affect and normal mood Skin Skin exam: Present warm, dry, intact, normal color and rash Course Quality Measures none Orders Category Date Time Status Dexamethasone Inj [Decadron Inj] Med 02/10/25 04:38 Discontinued 10 mg PO X1 ONE Famotidine [Pepcid] Med 02/10/25 04:38 Discontinued 20 mg PO X1 ONE predniSONE Med 02/10/25 04:42 Discontinued 60 mg PO X1 ONE Vital Signs Vital signs: Vital Signs Temperature 98.5 F 02/10/25 04:39 Pulse Rate 87 02/10/25 04:39 Respiratory Rate 18 02/10/25 04:39 Blood Pressure 147/85 H 02/10/25 04:39 Pulse Oximetry (%) 96 02/10/25 04:39 Oxygen Delivery Method Room Air 02/10/25 04:39 O2 at 96% on RA and WNLs Allergic Reaction MDM Narrative MDM Narrative:: 79M with history of HTN, anxiety, and UGIB presents to ED with 1 week of itchy rash on bilateral buttocks/thighs. 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 Patient is afebrile, calm, and alert. Unclear etiology. Will treat symptoms, which were improved with meds. Patient data External records reviewed:: [facility] previous records Clinical information provided by:: patient Social determinants that could affect healthcare access:: mental health Patient has the following chronic illnesses:: HTN, anxiety, and UGIB How is presenting disease/condition affected by chronic disease/condition?: uneffected by (none) Evaluation data The following diagnostics were reviewed and interpreted by me:: other (specify) (none) Lab and/or radiology exams considered but not ordered:: not ordered Interpretation Summary: n/a Medications / Prescriptions Medications or Prescriptions considered but not ordered:: ordered Medication administrations:: Medication Administration History Discontinued Medications Dexamethasone Sodium Phosphate (Dexamethasone Sod Phos Inj 10 Mg/Ml Vial) 10 mg PO X1 ONE Stop: 02/10/25 04:39 Last Admin: 02/10/25 04:52 Dose: Not Given Documented By: YEEL Non-Admin Reason: Cancelled by Provider Famotidine (Famotidine 20 Mg Tablet) 20 mg PO X1 ONE Stop: 02/10/25 04:39 Last Admin: 02/10/25 04:51 Dose: 20 mg Documented By: CVL Prednisone (Prednisone 20 Mg Tablet) 60 mg PO X1 ONE Stop: 02/10/25 04:43 Last Admin: 02/10/25 04:51 Dose: 60 mg Documented By: ALPHONSO above Consultations Consultation(s) initiated? (list below): No Diagnosis Differential Diagnosis allergic reaction: anaphylaxis, allergic reaction, angioedema, contact dermatitis, adverse reaction to drug, viral enanthem and urticaria Most likely diagnosis given after review of the tests above:: urticaria Admission Indicated Admission indicated?: not indicated Admission Request Was there a request for admission?: No Disposition Plan Disposition Plan: Discharge Discharge Attestation Discharge Attestation: The patient and all family members were given an opportunity to ask questions and understood the discharge instructions. Discharge instructions specifically effects, indications for sooner follow up or return to the emergency department, and the expected course of current diagnosis. Patient condition: Stable Discharge Plan Plan Patient Disposition: HOME (Self Care) Discharge Disposition comment: Stable Prescriptions/Referrals Prescriptions/Med Rec: New prednisone 20 mg tablet 20 mg PO BID 3 Days Qty: 6 0RF No Action tolterodine 4 mg capsule,extended release 24hr 4 mg PO QDAY Patient Comments: take 1 capsule by mouth once daily amlodipine 10 mg tablet 10 mg PO QDAY Patient Comments: take 1 tablet by mouth once daily ferrous sulfate [iron] 325 mg (65 mg iron) Tablet 325 mg PO BID finasteride 5 mg tablet 5 mg PO QDAY Patient Comments: take 1 tablet by mouth once daily folic acid 1 mg tablet 1 mg PO QDAY Patient Comments: take 1 tablet by mouth once daily thiamine HCl (vitamin B1) 100 mg tablet 100 mg PO QDAY Patient Comments: take 1 capsule by mouth once daily azelastine 137 mcg (0.1 %) spray,non-aerosol 1 spray INTRANASAL Q12H montelukast 10 mg tablet 10 mg PO QDAY famotidine 40 mg tablet 40 mg PO .bedtime Qty: 30 0RF acetaminophen-codeine 300-30 mg tablet 2 tab PO Q8H MDD 6 PRN (Reason: pain) Qty: 20 0RF omeprazole 40 mg capsule,delayed release(DR/EC) 40 mg PO QDAY Qty: 30 0RF Referrals: Madeline Webb MD [Primary Care Provider] - In 1 week Problem List Clinical Impression: Urticaria Patient/Caregiver Discharge Instructions Education Materials: ED Hives (Adult) Additional Instructions: Please follow-up with PCP within 24-48 hours and return immediately if symptoms worsen. Take OTC antihistamine as needed until symptoms resolve. Finish entire steroid course. Print Language: Czech Stand Alone Forms: Patient Portal Info Letter CHRISTOPHE/GILDA Supervising Physician CHRISTOPHE/GILDA Supervising Physician: Dr. Vargas
[2025-02-10] MEDS: FAMOTIDINE 20 MG TABLET PO (04:51)
[2025-02-10 05:32] VITALS: RESP 16
== END 2025-02-10 05:33 | disposition home or self-care (01) ==
PROVIDERS: Emergency Provider Emergency Medicine; PCP Internal Medicine
DX: L50.9 Urticaria, unspecified (principal)
CPT/HCPCS: 99283; J7512; A9270

== ENCOUNTER 2025-03-30 10:30 | Day surgery (SDC) | payer MEDICARE, BC, SELFPAY ==
[2025-03-29 12:50] VITALS: BMI 31.3
[2025-03-30] VITALS (8 sets, daily range): BP systolic 105–137; BP diastolic 52–74; PULSE 62–72; RESP 16–23; TEMP 36.2–36.8; O2SAT 92–100; BMI 31.6
[2025-03-30] MEDS: BENZOCAINE 20% (Hurricaine) SPRAY 1 DOSE TOP (12:18)
[2025-03-30] MEDS: SODIUM CHLORIDE 0.9% 500 ML 500 ML 20 ML IV (12:18)
[2025-03-30] MEDS: fentaNYL CIT INJ 50 mCg/ML AMP 2ML (ASD USE ONLY) IVP (12:27)
[2025-03-30] MEDS: MIDAZOLAM INJ 1 MG/ML VIAL 2 ML (ASD USE ONLY) 2 MG IVP (12:27)
== END 2025-03-30 13:35 | disposition home or self-care (01) ==
PROVIDERS: PCP Internal Medicine; Referring Provider Specialist; Visit Provider Specialist
PROC: (CPT 43239; principal; 2025-03-30 11:45)
DX: K74.60 Unspecified cirrhosis of liver (principal); K29.70 Gastritis, unspecified, without bleeding; K57.30 Diverticulosis of large intestine without perforation or abscess without bleeding; I10 Essential (primary) hypertension; N40.0 Benign prostatic hyperplasia without lower urinary tract symptoms; I85.11 Secondary esophageal varices with bleeding
CPT/HCPCS: 43244; A4649; J1200; J2250; J3010; J7999; A9270